=== PATIENT | male | born 1950 | race Two or more races ===

== ENCOUNTER 2024-06-17 08:25 | Outpatient (AMB) | payer MEDICARE, SELFPAY ==
[2024-06-17 08:40] VITALS: BP 188/90; PULSE 53; RESP 18; TEMP 36.6; O2SAT 97; BMI 30.7
--- NOTE | 2024-06-17 08:40 | PD.ORTHCLVIS ---
Vital signs 06/17/24 08:40 Height 1.65 m Height Method Measured Weight 83.915 kg Weight Measurement Method Standing Scale BMI 30.7 BP 188/90 H Blood Pressure Source Automatic Cuff Blood Pressure Location Right Upper Arm Position Sitting Respiration 18 Pulse 53 L Pulse Source Monitor Temp 97.9 F Temp Source Temporal Artery Scan Pulse Oximetry (%) 97 Oxygen Delivery Method Room Air Med/Allergies Allergies & Medications Allergies No Known Drug Allergies Allergy (Verified 06/17/24 08:44) Medication Reconciliation Unobtainable 06/17/24 [History Confirmed 06/17/24] Subjective Visit Visit for: new patient and knee Immunization / Flu Flu Vaccine in the Last 12 Months: No Flu Vaccine Exclusion Criteria: No Exclusion Criteria History of Present Illness Chief complaint: BILATERAL KNEE PAIN Date of injury / onset of symptoms: 5 YEARS & MORE Patient is a pleasant 74-year-old male with bilateral knee pain and bilateral knee arthritis. He has extreme varus deformity and reports that his knees have been Brett. He has tried ibuprofen, Tylenol, and formal physical therapy. He reports the pain is affecting his quality life and happiness. He would like to proceed with surgery if possible. I discussed with him that exactly failed conservative treatment already. Personal History Occupation: RETIRED Pain Pain level (0-10): 10 Pain duration: ALL DAY Pain location: inside (medial), outside (lateral), anterior and posterior Pain quality: sharp, dull and aching Pain timing: night, increases with activity and stairs Associated signs & symptoms: weakness and stiffness Ambulatory data Ambulatory device: cane Treatments Number of previous injections: 3 (IN [place] NO IMPROVEMENT) Improvement with previous injections: No Number of Physical Therapy sessions: 1 (UNABLE TO DO PT SESSION DUE TO PAIN MARCH) Improvement with PT: No Improvement with NSAIDS: n/a Review of Systems Review of Systems: All systems negative unless otherwise noted in HPI. Exam Exam Patient is in no acute distress and is cooperative with the examination today. Breathing is nonlabored. In no respiratory distress. Bilateral extremities were evaluated and demonstrates sensation intact to light touch. Palpable pedal pulses are present. No significant edema is present. Bilateral hips were examined. The patient has no pain with log roll of the hips. Internal rotation to 30 degrees and external rotation to 30 degrees is painless. Negative FADIR. The left knee was examined. The left knee is in [varus] alignment. Range of motion from 10-90 degrees. Knee is stable to varus and valgus as well as AP translation with <5mm. Patient has a [negative] McMurrays. There is [no] pain with patellofemoral compression and [no] crepitus noted. The knee is tender to palpation distally. The right knee was also examined. The right knee is in [varus] alignment. Range of motion from 10-90 degrees. Knee is stable to varus and valgus as well as AP translation with <5mm. Patient has a [negative] McMurrays. There is [no] pain with patellofemoral compression and [no] crepitus noted. The knee is tender to palpation distally. Bilateral knee x-rays demonstrate varus deformity and complete obliteration of the medial joint space. Significant osteophytes are present Assessment and Plan Problem List (1) Degenerative arthritis of knee, bilateral: Status: Acute Plan: Patient is a pleasant 74-year-old male with bilateral knee pain and bilateral knee arthritis. We discussed nonoperative and operative options. He is failed conservative treatment including ibuprofen, Tylenol, and physical therapy. He has extreme varus deformity. I would like to get new x-rays and we can discuss injections versus surgery at the next visit. We actually discussed surgery already in great detail today. He would like to think about it as far as timing. Advanced Care Planning Discussion Advance care planning discussed with:: patient and child Office Procedures GNS Level of Care Nursing/Assessment Patient Status: Established Patient Nursing Assessment/Reassesment: Medication Reconciliation, Update PMH in EMR and Vital Signs Coordination of Care: Complex Care and Chronic Disease 1-5, Education Complex Pt/Fam, Consent,records obtained, informed consent, Results/Orders obtained and Staff clarify orders Special Needs: Language special needs Established Patient Charge Established Patient Point Assignment: 95 Established Patient Point Charge: EP Level 2 (40-75) Past Medical History Past Medical History Have you ever been diagnosed with any of the following: Respiratory Problems Smoking: No Smoking Exposure: No
== END 2024-06-17 09:08 | disposition home or self-care (01) ==
LOC: HODSRG 08:25
PROVIDERS: PCP Family Medicine; Referring Provider Family Medicine; Supervising Provider Orthopaedic Surgery Adult Reconstructive Orthopaedic Surgery; Visit Provider Orthopaedic Surgery Adult Reconstructive Orthopaedic Surgery
DX: M17.0 Bilateral primary osteoarthritis of knee (principal); M25.562 Pain in left knee; M25.561 Pain in right knee
CPT/HCPCS: 99212; G0463

== ENCOUNTER 2024-07-01 08:07 | Outpatient (AMB) | payer MEDICARE, MEDICAID, SELFPAY ==
[2024-07-01 08:18] VITALS: BP 170/99; PULSE 61; RESP 16; TEMP 36.6; O2SAT 96; BMI 30.4
--- NOTE | 2024-07-01 08:18 | PD.ORTHCLVIS ---
Vital signs 07/01/24 08:18 Height 1.65 m Height Method Stated Weight 82.696 kg Weight Measurement Method Standing Scale BMI 30.4 BP 170/99 H Blood Pressure Source Automatic Cuff Blood Pressure Location Right Upper Arm Position Sitting Respiration 16 Pulse 61 Pulse Source Monitor Temp 97.8 F Temp Source Temporal Artery Scan Pulse Oximetry (%) 96 Oxygen Delivery Method Room Air Med/Allergies Allergies & Medications Allergies No Known Drug Allergies Allergy (Verified 07/01/24 08:20) Medication Reconciliation Unobtainable 06/17/24 [History Confirmed 07/01/24] Subjective Visit Visit for: follow up visit and knee Immunization / Flu Flu Vaccine in the Last 12 Months: No Flu Vaccine Exclusion Criteria: No Exclusion Criteria History of Present Illness Chief complaint: FOLLOW UP XRAYS/ KNEE INJECTION Date of injury / onset of symptoms: 5 YEARS & MORE Patient is a pleasant 74-year-old male with bilateral knee pain and bilateral knee arthritis. He has extreme varus deformity and reports that his knees have been curving in quite a bit. He has tried ibuprofen, Tylenol, and formal physical therapy. He reports the pain is affecting his quality life and happiness. He would like to proceed with surgery if possible. I discussed with him that he has failed conservative treatment already. Personal History Occupation: RETIRED Pain Pain level (0-10): 10 Pain duration: ALL DAY Pain location: inside (medial), outside (lateral), anterior and posterior Pain quality: sharp, dull and aching Pain timing: night, increases with activity and stairs Associated signs & symptoms: stiffness Ambulatory data Ambulatory device: cane Treatments Number of previous injections: 3 (IN [place] NO IMPROVEMENT) Improvement with previous injections: No Number of Physical Therapy sessions: 1 (UNABLE TO DO PT SESSION DUE TO PAIN MARCH) Improvement with PT: No Improvement with NSAIDS: n/a Review of Systems Review of Systems: All systems negative unless otherwise noted in HPI. Exam Exam Patient is in no acute distress and is cooperative with the examination today. Breathing is nonlabored. In no respiratory distress. Bilateral extremities were evaluated and demonstrates sensation intact to light touch. Palpable pedal pulses are present. No significant edema is present. Bilateral hips were examined. The patient has no pain with log roll of the hips. Internal rotation to 30 degrees and external rotation to 30 degrees is painless. Negative FADIR. The left knee was examined. The left knee is in [varus] alignment. Range of motion from 10-90 degrees. Knee is stable to varus and valgus as well as AP translation with <5mm. Patient has a [negative] McMurrays. There is [no] pain with patellofemoral compression and [no] crepitus noted. The knee is tender to palpation distally. The right knee was also examined. The right knee is in [varus] alignment. Range of motion from 10-90 degrees. Knee is stable to varus and valgus as well as AP translation with <5mm. Patient has a [negative] McMurrays. There is [no] pain with patellofemoral compression and [no] crepitus noted. The knee is tender to palpation distally. Bilateral knee x-rays demonstrate varus deformity and complete obliteration of the medial joint space. Significant osteophytes are present. There is varus deformity Assessment and Plan Problem List (1) Degenerative arthritis of knee, bilateral: Status: Acute Plan: Patient is a pleasant 74-year-old male with bilateral knee pain and bilateral knee arthritis. We discussed nonoperative and operative options. He is failed conservative treatment including ibuprofen, Tylenol, and physical therapy. He has extreme varus deformity and complete obliteration of the medial joint space. He wants to get a total knee replacement on the left as the pain is affecting his quality of life and happiness. He would also like a right knee injection at this time. Recommend right knee cortisone injection as patient would like to proceed with conservative treatment at this time. The risks and benefits of the procedure were reviewed with the patient and patient gave verbal consent to continue with the procedure. Procedure: performed by Dr. Davis Using sterile technique the Right knee was thoroughly prepped with alcohol, and approximately 1 cc of Kenalog 40 mg/mL and 4 cc of 1% lidocaine was injected without resistance into the medial tibial femoral joint space. The patient tolerated the procedure. The nature and purpose of the left total knee replacement, alternative method(s) of treatment, the material risks involved, and the possibility of complications were fully explained to the patient. The patient does NOT have any of the following contraindications to TKA: - Active infection of the knee joint, OR - Active systemic bacteremia, OR - Active skin infection or open wound at surgical site, OR - Neuropathic arthritis, OR - Severe, rapidly progressive neurological disease, OR - Severe medical condition that makes risks of surgery outweigh the potential benefit The patient was told the most common risks and complications associated with a total knee replacement include, but are not limited to: blood clots in the leg, fatal pulmonary embolism, dislocation of the prosthesis, intraoperative and postoperative fractures of the femur or tibia, infection, failure of the prosthesis or grafting materials, complications from anesthesia, reactions to blood transfusions, postoperative leg length inequality, instability of the knee replacement, nerve damage or injury, vascular injury, delayed wound healing, infection, other injury or even . In addition, there are risks associated with anesthesia given during this operation. Also, the patient was told that after undergoing a total knee replacement there may still be persistent pain or disability. The patient was informed that the success of this operation in part depends upon the mechanical devices which are going to be implanted and that these devices can fail or malfunction, and may need to be repaired or replaced and there are no guarantees as to the longevity of this device or its parts and that it or its parts could fail prematurely. The patient was also notified that during the course of surgery, there may be a need to use bone graft from donors, and that any bone graft used will be carefully screened for communicable diseases, including AIDS, hepatitis, Helio-Creutzfeldt, or other diseases, but despite the screening procedures, there is a small chance that they could contract one of these diseases. Finally, the patient was asked to follow completely and fully with all advice and recommended treatments, and that recovery and ultimate outcome are affected by their compliance with recommended treatment. We discussed the risks, benefits and treatment alternatives, and the patient is interested in proceeding with surgery. We will try to set this up as expeditiously as possible. Advanced Care Planning Discussion Advance care planning discussed with:: patient and child Office Procedures GNS Level of Care Nursing/Assessment Patient Status: Established Patient Nursing Assessment/Reassesment: Medication Reconciliation, Update PMH in EMR and Vital Signs Coordination of Care: Complex Care and Chronic Disease 1-5, Education Complex Pt/Fam, Consent,records obtained, informed consent, Results/Orders obtained and Staff clarify orders Special Needs: Language special needs Established Patient Charge Established Patient Point Assignment: 95 Established Patient Point Charge: EP Level 3 (80-115) Surgical Proc/IM SQ injection Major Surgical Procedure: Yes (KNEE INJECTION) Medication Given Medication Given Medication Given: Yes Documented Dose Given: 4 Route: Infiitration Medication Given Medication Given Medication Given: Yes Documented Dose Given: 1 Route: Infiitration Office Meds Xylocaine 10 mg/mL (1 %) injection solution Performing Provider: Michael Davis MD Performing Location: [facility] Administered by: Michael Davis MD on 07/01/24 08:58 Dose Route Admin Location Dispensed Lot Number Expiration Date [facility] Cash [employer] 20 mL Infiltration 20 mL [id number] 03/11/27 98022-966-04 [facility] triamcinolone acetonide 40 mg/mL suspension for injection Performing Provider: Michael Davis MD Performing Location: [facility] Administered by: Michael Davis MD on 07/01/24 08:58 Dose Route Admin Location Dispensed Lot Number Expiration Date [facility] Cash [employer] 40 mg Infiltration 1 mL [id number] 03/11/26 [address]-7 [employer] Past Medical History Past Medical History Have you ever been diagnosed with any of the following: Respiratory Problems Smoking: No Smoking Exposure: No
== END 2024-07-01 08:42 | disposition home or self-care (01) ==
PROVIDERS: PCP Family Medicine; Referring Provider Family Medicine; Supervising Provider Orthopaedic Surgery Adult Reconstructive Orthopaedic Surgery; Visit Provider Orthopaedic Surgery Adult Reconstructive Orthopaedic Surgery
DX: M17.0 Bilateral primary osteoarthritis of knee (principal); M25.562 Pain in left knee; M25.561 Pain in right knee
CPT/HCPCS: 20610; 99213; J3301; J3490; G0463

== ENCOUNTER → 2024-08-20 | Outpatient (CLI) | payer MEDICARE, MEDICAID, SELFPAY ==
--- NOTE | 2024-08-20 13:00 | XR_ITS ---
Examination: CT left lower extremity, without contrast. 2-D sagittal reconstructions. 2-D coronal reconstructions. 3-D reconstructions. Date and time of exam:August 20, 20242026 hours INDICATIONS: Left knee osteoarthritis pain for years CTDI: vol (mGy):9.84 DLP: (mGycm):774 Technique: Multiple 1.25 mm axial sections of the left lower extremity without intravenous contrast have been obtained. 2-D sagittal and coronal reconstructions have been obtained. 3-D reconstructions have been obtained. Low dose protocols were performed. One or more of the following dose reduction techniques were used; automated exposure control, adjustment of the mA and/or KV according to patient size, use of iterative reconstruction technique. Findings: Significant osteopenia Moderate narrowing left hip joint No left hip fracture or hip dislocation Advanced left knee tricompartment osteoarthritis, prominent narrowing medial joint space with subarticular sclerosis No fracture IMPRESSION: Advanced left knee tricompartment osteoarthritis
== END | disposition home or self-care (01) ==
PROVIDERS: Referring Provider Orthopaedic Surgery Adult Reconstructive Orthopaedic Surgery; Visit Provider Orthopaedic Surgery Adult Reconstructive Orthopaedic Surgery
DX: M17.12 Unilateral primary osteoarthritis, left knee (principal)
CPT/HCPCS: 73700

== ENCOUNTER 2024-11-25 12:52 | Outpatient (AMB) | payer MEDICAID, SELFPAY ==
--- NOTE | 2024-11-25 13:10 | ORTHONT_ITS ---
Vital signs 11/25/24 13:11 Height 1.65 m Height Method Stated Weight 83.943 kg Weight Measurement Method Standing Scale BMI 30.8 BP 133/82 H Blood Pressure Source Automatic Cuff Blood Pressure Location Left Upper Arm Position Sitting Respiration 18 Pulse 75 Pulse Source Monitor Temp 97.1 F Temp Source Temporal Artery Scan Pulse Oximetry (%) 95 Oxygen Delivery Method Room Air Med/Allergies Allergies & Medications Allergies No Known Drug Allergies Allergy (Verified 11/25/24 13:17) Medication Reconciliation Unobtainable 06/17/24 [History Confirmed 11/25/24] Exam Exam Patient is in no acute distress and is cooperative with the examination today. Breathing is nonlabored. In no respiratory distress. Bilateral extremities were evaluated and demonstrates sensation intact to light touch. Palpable pedal pulses are present. No significant edema is present. Bilateral hips were examined. The patient has no pain with log roll of the hips. Internal rotation to 30 degrees and external rotation to 30 degrees is painless. Negative FADIR. The left knee was examined. The left knee is in [varus] alignment. Range of motion from 10-90 degrees. Knee is stable to varus and valgus as well as AP translation with <5mm. Patient has a [negative] McMurrays. There is [no] pain with patellofemoral compression and [no] crepitus noted. The knee is tender to palpation distally. The right knee was also examined. The right knee is in [varus] alignment. Range of motion from 10-90 degrees. Knee is stable to varus and valgus as well as AP translation with <5mm. Patient has a [negative] McMurrays. There is [no] pain with patellofemoral compression and [no] crepitus noted. The knee is tender to palpation distally. Bilateral knee x-rays demonstrate varus deformity and complete obliteration of the medial joint space. Significant osteophytes are present. There is varus deformity Assessment and Plan Problem List (1) Degenerative arthritis of knee, bilateral: Status: Acute Plan: Patient is a pleasant 74-year-old male with bilateral knee pain and bilateral knee arthritis. We discussed nonoperative and operative options. He is failed conservative treatment including ibuprofen, Tylenol, and physical therapy. He has extreme varus deformity and complete obliteration of the medial joint space. He wants to get a total knee replacement on the left as the pain is affecting his quality of life and happiness. He would also like a right knee injection at this time. Recommend right knee cortisone injection as patient would like to proceed with conservative treatment at this time. The risks and benefits of the procedure were reviewed with the patient and patient gave verbal consent to continue with the procedure. Procedure: performed by Dr. Davis Using sterile technique the Right knee was thoroughly prepped with alcohol, and approximately 1 cc of Kenalog 40 mg/mL and 4 cc of 1% lidocaine was injected without resistance into the medial tibial femoral joint space. The patient tolerated the procedure. The nature and purpose of the left total knee replacement, alternative method(s) of treatment, the material risks involved, and the possibility of complications were fully explained to the patient. The patient does NOT have any of the following contraindications to TKA: - Active infection of the knee joint, OR - Active systemic bacteremia, OR - Active skin infection or open wound at surgical site, OR - Neuropathic arthritis, OR - Severe, rapidly progressive neurological disease, OR - Severe medical condition that makes risks of surgery outweigh the potential benefit The patient was told the most common risks and complications associated with a total knee replacement include, but are not limited to: blood clots in the leg, fatal pulmonary embolism, dislocation of the prosthesis, intraoperative and postoperative fractures of the femur or tibia, infection, failure of the prosthesis or grafting materials, complications from anesthesia, reactions to blood transfusions, postoperative leg length inequality, instability of the knee replacement, nerve damage or injury, vascular injury, delayed wound healing, infection, other injury or even . In addition, there are risks associated with anesthesia given during this operation. Also, the patient was told that after undergoing a total knee replacement there may still be persistent pain or disability. The patient was informed that the success of this operation in part depends upon the mechanical devices which are going to be implanted and that these devices can fail or malfunction, and may need to be repaired or replaced and there are no guarantees as to the longevity of this device or its parts and that it or its parts could fail prematurely. The patient was also notified that during the course of surgery, there may be a need to use bone graft from donors, and that any bone graft used will be carefully screened for communicable diseases, including AIDS, hepatitis, Helio-Creutzfeldt, or other diseases, but despite the screening procedures, there is a small chance that they could contract one of these diseases. Finally, the patient was asked to follow completely and fully with all advice and recommended treatments, and that recovery and ultimate outcome are affected by their compliance with recommended treatment. We discussed the risks, benefits and treatment alternatives, and the patient is interested in proceeding with surgery. We will try to set this up as expeditiously as possible. Advanced Care Planning Discussion Advance care planning discussed with:: patient and child Office Procedures GNS Level of Care Nursing/Assessment Patient Status: Established Patient Nursing Assessment/Reassesment: Medication Reconciliation, Update PMH in EMR and Vital Signs Coordination of Care: Complex Care and Chronic Disease 1-5, Education Complex Pt/Fam, Consent,records obtained, informed consent, Results/Orders obtained and Staff clarify orders Special Needs: Language special needs Established Patient Charge Established Patient Point Assignment: 95 Established Patient Point Charge: EP Level 3 (80-115) Surgical Proc/IM SQ injection Major Surgical Procedure: Yes (RIGHT KNEE INJECTION) Medication Given Medication Given Medication Given: Yes Documented Dose Given: 4 Route: Infiitration Medication Given Medication Given Medication Given: Yes Documented Dose Given: 1 Route: Infiitration Office Meds Xylocaine 10 mg/mL (1 %) injection solution Performing Provider: Michael Davis MD Performing Location: [facility] Administered by: Michael Davis MD on 11/25/24 13:19 Dose Route Admin Location Dispensed Lot Number Expiration Date [facility] Candle Pourer 20 mL Infiltration 20 mL [id number] 02/10/28 14387-792-53 [facility] triamcinolone acetonide 40 mg/mL suspension for injection Performing Provider: Michael Davis MD Performing Location: [facility] Administered by: Michael Davis MD on 11/25/24 13:19 Dose Route Admin Location Dispensed Lot Number Expiration Date [facility] Candle Pourer 40 mg intra-articular KNEE 1 mL [id number] 06/11/26 4071-2489-70 [facility] Intake Visit Data Collection New Patient or Established: Established Patient (seen at [facility] within 3 years) Reason for Visit:: PRE OP L TLA/RIGHT KNEE INJECTION Seen by Clinical Staff ONLY (RN/MA): No Labor Delivery Rn Required: Yes PCP or OBGYN visit in last 3 months: Yes Hx Now: No Do You Feel Safe at Home: Yes Authorities Contacted: N/A Questionairres Past Medical History Past Medical History Have you ever been diagnosed with any of the following: Respiratory Problems Smoking: No Smoking Exposure: No Subjective Visit Visit for: follow up visit and knee Immunization / Flu Flu Vaccine in the Last 12 Months: No Flu Vaccine Exclusion Criteria: No Exclusion Criteria History of Present Illness Chief complaint: PRE OP L TKA/RIGHT KNEE INJECTION Patient is a pleasant 74-year-old male with bilateral knee pain and bilateral knee arthritis. He has extreme varus deformity and reports that his knees have been curving in quite a bit. He has tried ibuprofen, Tylenol, and formal physical therapy. He reports the pain is affecting his quality life and happiness. He would like to proceed with surgery if possible. I discussed with him that he has failed conservative treatment already. He would like a knee injection on the right and would like to proceed with a left total knee replacment Pain Pain level (0-10): 8 Pain duration: ALL DAY Pain location: inside (medial) and anterior Pain quality: dull and aching Pain timing: night, increases with activity and stairs Associated signs & symptoms: weakness and stiffness Ambulatory data Ambulatory device: cane Treatments Improvement with previous injections: No Improvement with PT: No Improvement with NSAIDS: no Review of Systems Review of Systems: All systems negative unless otherwise noted in HPI.
[2024-11-25 13:11] VITALS: BP 133/82; PULSE 75; RESP 18; TEMP 36.2; O2SAT 95; BMI 30.8
== END 2024-11-25 13:16 | disposition home or self-care (01) ==
LOC: HODSRG 12:52
PROVIDERS: PCP Physician Assistant; Referring Provider Physician Assistant; Supervising Provider Orthopaedic Surgery Adult Reconstructive Orthopaedic Surgery; Visit Provider Orthopaedic Surgery Adult Reconstructive Orthopaedic Surgery
DX: M17.0 Bilateral primary osteoarthritis of knee (principal); M25.562 Pain in left knee; M25.561 Pain in right knee; M21.162 Varus deformity, not elsewhere classified, left knee; M21.161 Varus deformity, not elsewhere classified, right knee
CPT/HCPCS: 20610; 99213; J3301; J3490; G0463

== ENCOUNTER 2024-12-10 06:40 | Day surgery (SDC) | payer MEDICARE, MEDICAID, SELFPAY ==
[2024-12-09 11:42] VITALS: BMI 32.3
[2024-12-09 12:46] LABS: Basophils % (Auto) 0 % (0-2.5); Eosinophils # (Auto) 0.6 Thou/mm3 (0.0-0.5); Eosinophils % (Auto) 6 % (0-10); Hematocrit 39.7 % (41.0-53.0); Hemoglobin 12.8 g/dL (13.5-16.0); Immature Granulocytes % (Auto) 1 % (0-0); Immature Granulocytes Auto 0.06 Thou/mm3 (0.00-0.00); Lymphocytes % (Auto) 20 % (10-50); Mean Corpuscular HGB Conc 32.2 g/dl (31.0-37.0); Mean Corpuscular Hemoglobin 29.5 pg (25.0-35.0); Mean Corpuscular Volume 92 fL (80-100); Monocytes # (Auto) 0.8 Thou/mm3 (0.0-0.8); Monocytes % (Auto) 9 % (0-12); Neutrophils # (Auto) 6.2 Thou/mm3 (1.8-7.7); Neutrophils % (Auto) 64 % (37-80); Nucleated Red Blood Cell % 0 /100 WBC (0); Platelet Count 286 Thou/mm3 (140-440); RDW Standard Deviation 46.1 fL (35.1-43.9); Red Blood Count 4.34 Miln/mm3 (4.50-5.90); White Blood Count 9.7 Thou/mm3 (3.8-10.6)
[2024-12-09 12:51] LABS: Partial Thromboplastin Time 24.8 Seconds (22.0-36.0); Prothrombin Time 11.4 Seconds (9.0-12.2)
[2024-12-09 12:54] LABS: Alanine Aminotransferase 32 U/L (10-49); Albumin, Serum 4.5 gm/dL (3.4-4.8); Albumin/Globulin Ratio 1.7 (1.2-2.2); Alkaline Phosphatase 115 U/L (46-116); Anion Gap 9 (7-16); Aspartate Amino Transferase 24 U/L (0-34); BUN/Creatinine Ratio 15 Ratio (12-20); Bilirubin,Total 0.7 mg/dL (0.3-1.2); Blood Urea Nitrogen 21 mg/dL (9-23); Calcium 9.3 mg/dL (8.3-10.6); Calcium (Corrected) 9.3 mg/dL (8.5-10.1); Chloride 107 mMol/L (98-107); Creatinine (Component) 1.4 mg/dL (0.6-1.3); Estimated Creatinine Clearance 43.8 mL/min (>60); Globulin 2.6 gm/dL (2.3-3.5); Glucose 131 mg/dL (74-106); Osmolality,Calculated 291 (275-295); Potassium 4.1 mMol/L (3.4-5.1); Sodium 144 mMol/L (136-145); Total Protein 7.1 gm/dL (5.7-8.2); eGFR 53 See Note
--- NOTE | 2024-12-09 13:43 | SUR.PREOP ---
Cardiac records and history reviewed with Dr Pantoja.
[2024-12-10] VITALS (19 sets, daily range): BP systolic 93–129; BP diastolic 62–91; PULSE 77–115; RESP 12–20; TEMP 36.1–36.4; O2SAT 87–99; BMI 31.2; BMI 14.0
[2024-12-10] MEDS: ACETAMINOPHEN 325 MG TABLET 650 MG PO (07:11)
[2024-12-10] MEDS: PREGABALIN 75 MG CAPSULE PO (07:12)
[2024-12-10] MEDS: MELOXICAM 7.5 MG TABLET PO (07:12)
--- NOTE | 2024-12-10 11:18 | XR_ITS ---
Examination: Left knee 2 views Technique one AP lateral left knee 2 views Exam date and time: December 10, 2024 1215 hours INDICATIONS: Postop knee replacement FINDINGS: Total left knee arthroplasty. Satisfactory alignment No fracture Prominent osteopenia IMPRESSION: Total left knee arthroplasty with satisfactory alignment
--- NOTE | 2024-12-10 11:22 | ESOP_ITS ---
Date of Procedure 12/10/24 Pre Op Diagnosis left knee osteoarthritis Post Op Diagnosis left knee osteoarthritis Procedure left total knee replacement trev Findings full thickness cartilage loss and osteophytes Procedure Description Indication: The patient is a 74 year old who has a long history of left knee pain. X-rays show degenerative arthritis involving the knee. Over the past several years the patient has had increasing pain, progressive limitation in function. He has failed conservative measures including activity modification, physical therapy, injections, anti-inflammatories, and assistive devices. After a lengthy discussion of the risks and benefits, the patient presents now for total knee replacement. The nature and purpose of the total knee replacement, alternative method(s) of treatment, the material risks involved, and the possibility of complications were fully explained to the patient. The patient was told the most common risks and complications associated with a total knee replacement include, but are not limited to blood clots in the leg, fatal pulmonary embolism, dislocation of the prosthesis, intraoperative and postoperative fractures of the femur or tibia, infection, failure of the prosthesis or grafting materials, complications from anesthesia, reactions to blood transfusions, postoperative leg length inequality, instability of the knee replacement, nerve damage or injury, vascular injury, delayed wound healing, infections, other injury or even . In addition, there are risks associated with anesthesia given during this operation, temporary or permanent numbness on the skin lateral to the incision can be a complication unique to total knee surgery, and kneeling can be painful after knee replacement surgery. Also, the patient was told that after undergoing a total knee replacement there may still be pain or disability. We discussed with the patient that we will be using a robot-assisted technology. We discussed that there is a possibility of converting to manual instrumentation. The patient was informed that the success of this operation in part depends upon the mechanical devices which are going to be implanted and that these devices can fail or malfunction, and may need to be repaired or replaced and there are no guarantees as to the longevity of this device or its part and that it or its parts could fail prematurely. Finally, the patient was asked to follow completely and fully with all advice and recommended treatments, and that recovery and ultimate outcome are affected by their compliance with recommended treatment. Surgical technique: Patient was marked and consented in the pre-operative area. The patient was brought to the operating room and placed on the operating table in a supine position. Prior to positioning, a timeout procedure was performed between the surgeon, the anesthesiologist, and the nursing staff where the patient and the operative side were identified and confirmed. After adequate general anesthetic was obtained, the left lower extremity was prepped and draped in the usual sterile fashion. A weight based dose of Cefazolin were administered within 1 hour prior to incision. The robot was preregistered and calirated before the incision. The extremity was exsanguinated with an esmarch badge and tourniquet inflated to 250mmHg. A midline incision was made. A median parapatellar arthrotomy was made. The patella was subluxed laterally. A medial release was performed to expose the medial tibia. His femoral and tibial pins were placed through an intra incisional manner for both cases. Every effort was made to ensure that the distalmost aspect of the pin was hung in the second cortex. The arrays were then tightened several times to ensure that it was fixed for the remainder of the case. Both femoral and tibial checkpoints were then placed. We then went through the registration process of the bone. We then assessed the knee deformity and attempted to correct it. We also used the robot to aid in judging laxity in both extension and flexion. Final based on laxity and alignment we changed the preoperative assessment to obtain proper proper implant positioning and to correct deformity. Attention was then placed to the tibia. We made a tibial cut using the robot ensuring that both the MCL and the patella tendon were protected with retractors. We then went to the femur and made the posterior cut followed by the anterior cut and the anterior chamfer. The bone was then removed and we made a distal femur cut and a posterior chamfer cut. We verified all cuts. A trial reduction was performed with a size 6 femoral component and a size 5 keeled tibial component. The patella tracked centrally, and no lateral retinacular release was necessary. The trial implants were removed. The arrays, pins, and checkpoints were all removed. We performed a verification that all pins were removed. The cut bone surfaces were lavaged. A size 6 left femoral component, a size 5 keeled tibial component were impacted into position. The knee was felt to be well balanced in the sagittal and coronal plane. The final 5x10 mm cruciate- substituting articular insert was impacted into the tibial tray. The knee was brought out to full extension, flexed up to 120 degrees. It was stable to varus and valgus stress and appropriately balanced in flexion and extension. The wounds were copiously irrigated following deflation of tourniquet. The medial retinaculum was reapproximated with #1 vicryl and quill. The subcutaneous tissues were closed with 0 and 2-0 interrupted Vicryl. The skin was closed with 3-0 Monofilament V loc suture. A sterile dressing was applied. The patient was transferred to a bed and brought to recovery in stable condition. The patient tolerated the procedure well. There were no intraoperative complications. Sponge and needle counts were correct times 2. As the attending surgeon, I ariel I was present and performed the entire operation. Grafts/Implants Size 6 CR Femur Size 5 Tibia 10mm poly CS Anesthesia spinal Implants radha Pathology / specimen None Pathology comment: none Estimated Blood Loss 150 Condition Stable Disposition same day Surgeon Michael Davis MD Surgical Staff Operation Date: 12/10/24 10:00 Case Staff Anesthesiologist: Rodney Bridges RN First Assistant: Imelda Vu
--- NOTE | 2024-12-10 11:44 | SUR.PHASEI ---
pt received from OR in recovery bay 2. pt obtunded, breathing labored on 15l oxymask, oral airway in place. v/s stable. pt dressing to left lower extremity cdi. report received from Macario Frost and Dr. Bridges.
--- NOTE | 2024-12-10 11:49 | SUR.PHASEI ---
suction performed on pt.
--- NOTE | 2024-12-10 14:11 | SUR.PHASEII ---
pt able to tolerate oral fluids without difficulty swallowing or nausea/vomiting.
[2024-12-10] MEDS: ALBUTEROL RT 2.5 MG/3 ML NEBU INH (15:57)
--- NOTE | 2024-12-10 16:10 | SUR.PHASEII ---
pt oxygen saturation better after breathing treatment, spoke with Dr. Bridges about pts oxygen saturation, ok with d/c.
--- NOTE | 2024-12-10 16:24 | SUR.PHASEII ---
pt awake and alert, breathing unlabored on room air. v/s stable. pt dressing to left lower extremity cdi. pt cleared by physical therapist Jeannie. pt able to ambulate to with walker. d/c instructions given with daughter Shayla in room using information technology architect Leola falk, all questions answered. pt d/c via wheelchair with all belongings.
== END 2024-12-10 16:24 | disposition home or self-care (01) ==
PROVIDERS: Anesthesiology; PCP Physician Assistant; Referring Provider Orthopaedic Surgery Adult Reconstructive Orthopaedic Surgery; Visit Provider Orthopaedic Surgery Adult Reconstructive Orthopaedic Surgery
PROC: (CPT 27447; principal; 2024-12-10 09:45)
DX: M17.12 Unilateral primary osteoarthritis, left knee (principal); M25.762 Osteophyte, left knee
CPT/HCPCS: 27447; 20985; 36415; 73560; 80053; 85025; 85610; 85730; 97162; A4217; C1713; C1776; J2250; J2704; J2795; J3010; J3490; J7030; J7120; J7999; A4648; A4649; A9270

== ENCOUNTER 2024-12-11 12:46 | Inpatient (IN) | payer MEDICARE, MEDICAID, SELFPAY ==
[2024-12-11] VITALS (7 sets, daily range): BP systolic 114–148; BP diastolic 71–92; PULSE 68–79; RESP 13–96; TEMP 36.3–37.3; O2SAT 93–96; BMI 31.2
--- NOTE | 2024-12-11 12:54 | XR_ITS ---
Examination: CT brain head without contrast. 2-D sagittal coronal reconstructions Date and time of exam:December 11, 2024 1257 hours INDICATIONS: Stroke alert, onset left-sided body weakness today CTDI: vol (mGy):48.2 DLP: (mGycm):963 Technique: Multiple CT axial sections of the brain have been obtained, 5 mm slice thickness. Contrast has not been administered. 2-D sagittal, coronal reconstructions have been obtained Low dose protocols were performed. One or more of the following dose reduction techniques were used; automated exposure control, adjustment of the mA and/or KV according to patient size, use of iterative reconstruction technique. Findings: No significant ventricular enlargement. Intra-axial or extra-axial hemorrhage density is not seen. No mass effect or midline shift Basal cisterns are not remarkable. Fourth ventricle is midline. Cranial vault intact. Impression: Negative for acute hemorrhage, mass effect or midline shift
--- NOTE | 2024-12-11 12:54 | EKG_ITS ---
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
--- NOTE | 2024-12-11 12:55 | PD.EDADULT ---
ED General RME/HPI General Chief complaint: General Adult/Misc Complain Stated complaint: LEFT ARM WEAKNESS X1DAY Time Seen by Provider: 12/11/24 12:53 Arrival date/time: 12/11/24 12:46 RME / HPI RME / HPI narrative: 74-year-old male patient with significant history of hypertension diabetes mellitus, came in for evaluation regarding strokelike symptoms. Last well-known time 4:30 PM yesterday after patient was helped by physical therapy to get up. Patient had a knee replacement to the left lower extremity yesterday by Dr. Davis. Patient is complaining of left arm weakness, headache, dizziness, severity moderate. Denies any slurring of speech denies any vomiting denies any other complaints no medication was taken prior to arrival. Patient is taking 81 mg of aspirin. Related Data Home Medications ?Medication ?Instructions ?Recorded ?Confirmed amlodipine 10 mg tablet 10 mg PO QDAY 12/09/24 12/10/24 aspirin 81 mg tablet,delayed 81 mg PO QDAY 12/09/24 12/10/24 release (Adult Low Dose Aspirin) atorvastatin 40 mg tablet 40 mg PO QPM 12/09/24 12/10/24 lisinopril 20 mg tablet 20 mg PO QDAY 12/09/24 12/10/24 metformin 500 mg tablet 500 mg PO BID 12/09/24 12/10/24 Previous Rx's ?Medication ?Instructions ?Recorded acetaminophen 500 mg tablet 1,000 mg (2 x 500 mg) PO Q6H PRN 12/10/24 (Acetaminophen Extra Strength) pain #90 tabs aspirin 81 mg tablet,delayed 81 mg PO BID #60 tabs 12/10/24 release doxycycline hyclate 100 mg tablet 100 mg PO BID #14 tabs 12/10/24 gabapentin 300 mg capsule 300 mg PO .qhs #30 caps 12/10/24 oxycodone 5 mg tablet 5 mg PO Q6H PRN pain #28 tabs 12/10/24 sennosides 8.6 mg-docusate sodium 1 tab-cap PO QDAY #30 tabs 12/10/24 50 mg tablet (Senna-S) Allergies Allergy/AdvReac Type Severity Reaction Status Date / Time No Known Drug Allergies Allergy Verified 12/10/24 07:01 Review of Systems Review of Systems Narrative Review of Systems: Review of system reviewed and within normal limits except mentioned in HPI ED Exam Narrative Physical exam: VITAL SIGNS: Reviewed. GENERAL APPEARANCE: Alert and interactive, follows commands, no acute distress, HEAD AND FACE: Non-traumatic. ENT: PERRL, pink conjunctivitis, eyelid no trauma, Mucous membrane moist. NECK: Supple, nontender, no nuchal rigidity. CHEST: No tenderness, no crepitus, no paradoxical movement, no retractions. LUNGS: Clear, well ventilated, symmetric, no rales, no wheezing, no ronchi, no stridor, good breath sounds bilaterally. HEART: Regular rate, regular rhythm, no murmur, no gallops. ABDOMEN: Soft, positive bowel sounds, nondistended, no guarding, nontender, no rebound, no masses, RECTAL: Deferred. GENITAL: Deferred. NEUROLOGICAL: Gross motor function intact sensory function intact, weakness noted on handgrip, slight left arm drifting, mild facial asymmetry noted, tongue is deviated to the left mildly. On protrusion MUSCULOSKELETAL: low back nontender, full range of motion. EXTREMITIES: Nontender, full range of motion. SKIN: Color pink, dry, no rash, no lacerations, no abrasions, no contusions. LYMPHATICS: Deferred. Course Quality Measures none Orders Category Date Time Status Bedside Blood Glucose NOW Care 12/11/24 12:54 Active COVID-19 Screening Questionnaire NOW Care 12/11/24 14:54 Active Glost Kiln Operator NOW Care 12/11/24 12:54 Active Continuous Pulse Oximetry NOW Care 12/11/24 12:54 Completed Decision to Admit X1 Care 12/11/24 14:54 Active EKG (ED ONLY) *Do not use* NOW Care 12/11/24 12:54 Completed In and Out Catheter NEEDED Care 12/11/24 12:54 Active Insert IV NOW Care 12/11/24 12:54 Active NIH Stroke Scale now Care 12/11/24 12:54 Active NPO NOW Care 12/11/24 12:54 Active Nurse Swallow Screen x1 Care 12/11/24 12:54 Active Consult to Neurology / Tele-Neurology Routine Cons 12/11/24 12:[address] stroke protocol Stat Exams 12/11/24 12:54 Completed EKG (ED Only) Stat Exams 12/11/24 12:54 Draft CBC Stat Lab 12/11/24 13:11 Completed Comprehensive Metabolic Panel Stat Lab 12/11/24 13:11 Completed Drug Screen,Urine Stat Lab 12/11/24 12:54 Ordered Magnesium Stat Lab 12/11/24 13:11 Completed Partial Thromboplastin Time Stat Lab 12/11/24 13:11 Completed Prothrombin Time with INR Stat Lab 12/11/24 13:11 Completed Troponin I Stat Lab 12/11/24 13:11 Completed Urinalysis Stat Lab 12/11/24 12:54 Ordered Urine Culture Stat Lab 12/11/24 12:54 Ordered Aspirin [Ecotrin] Med 12/11/24 13:23 Discontinued 81 mg PO X1 ONE Ondansetron Inj [Zofran Inj] Med 12/11/24 12:54 Active 4 mg IV Q4HR PRN Oxygen Delivery NOW RT 12/11/24 12:54 Active Vital Signs Vital signs: Vital Signs Temperature 99.1 F 12/11/24 12:58 Pulse Rate 77 12/11/24 12:58 Respiratory Rate 19 12/11/24 12:58 Blood Pressure 114/71 12/11/24 12:58 Pulse Oximetry (%) 95 12/11/24 12:58 Oxygen Delivery Method Room Air 12/11/24 12:58 Discharge Plan Plan Patient Disposition: Admit Acute Care w/in Hospital Discharge Disposition comment: Stable Prescriptions/Referrals Prescriptions/Med Rec: No Action metformin 500 mg tablet 500 mg PO BID atorvastatin 40 mg tablet 40 mg PO QPM lisinopril 20 mg tablet 20 mg PO QDAY amlodipine 10 mg tablet 10 mg PO QDAY aspirin [Adult Low Dose Aspirin] 81 mg tablet,delayed release (DR/EC) 81 mg PO QDAY sennosides-docusate sodium [Senna-S] 8.6-50 mg tablet 1 tab-cap PO QDAY Qty: 30 0RF aspirin 81 mg tablet,delayed release (DR/EC) 81 mg PO BID Qty: 60 0RF acetaminophen [Acetaminophen Extra Strength] 500 mg tablet 1,000 mg PO Q6H MDD 1000mg PRN (Reason: pain) Qty: 90 0RF gabapentin 300 mg capsule 300 mg PO .qhs Qty: 30 0RF doxycycline hyclate 100 mg tablet 100 mg PO BID Qty: 14 0RF oxycodone 5 mg tablet 5 mg PO Q6H MDD 20 PRN (Reason: pain) Qty: 28 0RF Rx Instructions: z96.65 Referrals: Seb Ogden PA-C [Primary Care Provider] - In 1 week Problem List Clinical Impression: Stroke-like symptom Patient/Caregiver Discharge Instructions Print Language: Turkmen Stand Alone Forms: [employer] Award Info., Patient Portal Info Letter MDM Narrative MDM hospital course (for use when minimal MDM required): 74-year-old male patient with significant history of hypertension diabetes mellitus, came in for evaluation regarding strokelike symptoms. Last well-known time 4:30 PM yesterday after patient was helped by physical therapy to get up. Patient had a knee replacement to the left lower extremity yesterday by Dr. Davis. Patient is complaining of left arm weakness, headache, dizziness, severity moderate. Denies any slurring of speech denies any vomiting denies any other complaints no medication was taken prior to arrival. Patient is taking 81 mg of aspirin. Stroke alert was initiated right away at the time of my initial evaluation CT scan of the head came back unremarkable. Laboratory workup also came back with WBC count of 14.4, hemoglobin 10.8 hematocrit 32.6 creatinine 1.4 BUN of 25 the rest of the labs unremarkable. Except for magnesium 1.5 Patient was given aspirin 81 mg p.o. x 1 Spoke with teleneurologist, who told me to cancel the CT angiogram of the head and neck and just go ahead and do MRI. Spoke with hospitalist who admitted the patient. Clinical Information Other: Family Medical Records reviewed [facility] Meds/Rx considered, not ordered describe: None Labs/Rad/Tests considered, not ordered Describe: None Chronic Illness/Social Conditions Explain: Hypertension diabetes mellitus, status post knee replacement yesterday Labs Lab(s) Interpretation(s): None Imaging Imaging Interpretation(s): EKG as interpreted by me showed paced rhythm, ventricular rate of 76 bpm, [place] interval 366 MS, no ST segment elevation depression noted. Medication Administration(s) Medication Administration History Ondansetron HCl (Ondansetron Inj 2 Mg/Ml Inj 2 Ml) 4 mg IV Q4HR PRN PRN Reason: NAUSEA OR VOMITING Stop: 01/10/25 12:53 Discontinued Medications Aspirin (Aspirin Ec 81 Mg Tabec) 81 mg PO X1 ONE Stop: 12/11/24 13:24 Last Admin: 12/11/24 15:00 Dose: 81 mg Documented By: ER Diagnosis Differential Diagnosis ED Complaint MDM: Strokelike symptoms, left upper extremity weakness, status post knee replac Diagnoses ruled out and/or further discussions: Strokelike symptoms
[2024-12-11 13:21] LABS: Basophils % (Auto) 0 % (0-2.5); Eosinophils % (Auto) 0 % (0-10); Hematocrit 32.6 % (41.0-53.0); Hemoglobin 10.8 g/dL (13.5-16.0); Immature Granulocytes % (Auto) 0 % (0-0); Immature Granulocytes Auto 0.04 Thou/mm3 (0.00-0.00); Lymphocytes # (Auto) 1.1 Thou/mm3 (1.0-4.8); Lymphocytes % (Auto) 8 % (10-50); Mean Corpuscular HGB Conc 33.1 g/dl (31.0-37.0); Mean Corpuscular Hemoglobin 29.3 pg (25.0-35.0); Mean Corpuscular Volume 88 fL (80-100); Monocytes % (Auto) 7 % (0-12); Neutrophils # (Auto) 12.3 Thou/mm3 (1.8-7.7); Neutrophils % (Auto) 85 % (37-80); Nucleated Red Blood Cell % 0 /100 WBC (0); Platelet Count 232 Thou/mm3 (140-440); RDW Standard Deviation 44.2 fL (35.1-43.9); Red Blood Count 3.69 Miln/mm3 (4.50-5.90); White Blood Count 14.4 Thou/mm3 (3.8-10.6)
--- NOTE | 2024-12-11 13:27 | PC.NURSE ---
pt came in due to left arm numbness and weakness that started after physical therapy yesterday. pt also had knee surgery yesterday. stroke alert called. pt has no other symptoms. but slight headache.
[2024-12-11 13:36] LABS: INR 1.1 (0.9-1.3); Partial Thromboplastin Time 26.5 Seconds (22.0-36.0); Prothrombin Time 11.9 Seconds (9.0-12.2)
[2024-12-11 13:38] LABS: Alanine Aminotransferase 19 U/L (10-49); Albumin/Globulin Ratio 1.7 (1.2-2.2); Alkaline Phosphatase 75 U/L (46-116); Anion Gap 12 (7-16); Aspartate Amino Transferase 21 U/L (0-34); BUN/Creatinine Ratio 18 Ratio (12-20); Bilirubin,Total 0.8 mg/dL (0.3-1.2); Blood Urea Nitrogen 25 mg/dL (9-23); Calcium 8.8 mg/dL (8.3-10.6); Calcium (Corrected) 8.8 mg/dL (8.5-10.1); Carbon Dioxide 23.9 mMol/L (20.0-31.0); Chloride 105 mMol/L (98-107); Creatinine (Component) 1.4 mg/dL (0.6-1.3); Globulin 2.4 gm/dL (2.3-3.5); Glucose 124 mg/dL (74-106); Magnesium 1.5 mg/dL (1.6-2.6); Osmolality,Calculated 286 (275-295); Potassium 4.4 mMol/L (3.4-5.1); Sodium 141 mMol/L (136-145); Total Protein 6.4 gm/dL (5.7-8.2); Troponin I < 0.002 ng/mL (0.0-0.045); eGFR 53 See Note
--- NOTE | 2024-12-11 14:08 | ESCONSULT_ITS ---
Tele Neuro Consultation Consultation Date 12/11/24 Most Recent Vital Signs Last Vital Signs Temp 98.6 F 12/11/24 13:27 Pulse 77 12/11/24 13:40 Resp 15 12/11/24 13:40 BP 130/74 12/11/24 13:27 Pulse Ox 96 12/11/24 13:27 O2 Del Method Room Air 12/11/24 13:27 Laboratory-Coagulation Panel PT 11.9 Seconds (9.0-12.2) 12/11/24 13:11 INR 1.1 (0.9-1.3) 12/11/24 13:11 APTT 26.5 Seconds (22.0-36.0) 12/11/24 13:11 Consultation Narrative [facility] Tele[facility]urology Consult Services Patient Name:???Keenan Heredia Date of :???1950 Identification Number:??? Date of Service:???12/11/2024 12:57:01 Diagnosis:?I63.89 - Cerebrovascular accident (CVA) due to other mechanism ([facility]) Impression: ?74 year old male who presents with left arm weakness. presentation concerning for acute small vessel stroke vs recrudescence of prior stroke. Our recommendations are outlined below. Recommendations: ? Stroke/Telemetry Floor ? Neuro Checks ? Bedside Swallow Eval ? DVT Prophylaxis ? IV Fluids, Normal Saline ? Head of Bed 30 Degrees ? Euglycemia and Avoid Hyperthermia (PRN Acetaminophen) ? Initiate or continue Aspirin 81 MG daily Sign Out: ? Discussed with Emergency Department Provider Advanced Imaging: Advanced Imaging Deferred because: Non-disabling symptoms as verified by the patient; no cortical signs so not consistent with LVO Metrics: Last Known Well: 12/10/2024 16:30:00 Dispatch Time: 12/11/2024 12:57:01 Arrival Time: 12/11/2024 12:46:00 Initial Response Time: 12/11/2024 13:00:00Symptoms: Left arm weakness. Initial patient interaction: 12/11/2024 13:09:16 NIHSS Assessment Completed: 12/11/2024 13:15:00Patient is not a candidate for Thrombolytic. Thrombolytic Medical Decision: 12/11/2024 13:15:00Patient was not deemed candidate for Thrombolytic because of following reasons: LKW outside 4.[address] head showed no acute hemorrhage or acute core infarct. Primary Provider Notified of Diagnostic Impression and Management Plan on: 12/11/2024 13:21:00 History of Present Illness:Patient is a 74 year old Male. Patient was brought by private transportation with symptoms of Left arm weakness. 74 year old male who presents to the hospital because of headache and left arm weakness. He had left knee replacement recently and yesterday while at physical therapy he had trouble holding onto an object with his left hand and had trouble making a fist. Past Medical History: ?Hypertension Medications: No Anticoagulant use? No Antiplatelet use Reviewed EMR for current medications Allergies:? Reviewed Social History: Drug Use: No Family History: There is no family history of premature cerebrovascular disease pertinent to this consultation ROS : 14 Points Review of Systems was performed and was negative except mentioned in HPI. Past Surgical History: There Is No Surgical History Contributory To Today?s Visit Examination: BP(130/74),?Pulse(77), 1A: Level of Consciousness - Alert; keenly responsive?+ 0 1B: Ask Month and Age - 1 Question Right?+ 1 1C: Blink Eyes & Squeeze Hands - Performs Both Tasks?+ 0 2: Test Horizontal Extraocular Movements - Normal?+ 0 3: Test Visual Lucero - No Visual Loss?+ 0 4: Test Facial Palsy (Use Grimace if Obtunded) - Normal symmetry?+ 0 5A: Test Left Arm Motor Drift - Drift, but doesn't hit bed?+ 1 5B: Test Right Arm Motor Drift - No Drift for 10 Seconds?+ 0 6A: Test Left Leg Motor Drift - No Drift for 5 Seconds?+ 0 6B: Test Right Leg Motor Drift - No Drift for 5 Seconds?+ 0 7: Test Limb Ataxia (FNF/Heel-Adair) - No Ataxia?+ 0 8: Test Sensation - Mild-Moderate Loss: Less Sharp/More Dull?+ 1 9: Test Language/Aphasia - Normal; No aphasia?+ 0 10: Test Dysarthria - Normal?+ 0 11: Test Extinction/Inattention - No abnormality?+ 0 NIHSS Score:?3 Pre-Morbid Modified Toombs Scale:2 Points = Slight disability; unable to carry out all previous activities, but able to look after own affairs without assistance Spoke with :?Michelle WOODY This consult was conducted in real time using interactive audio and video technology. Patient was informed of the technology being used for this visit and agreed to proceed. Patient located in hospital and provider located at home/office setting. Patient is being evaluated for possible acute neurologic impairment and high probability of imminent or life-threatening deterioration. I spent total of 30 minutes providing care to this patient, including time for face to face visit via telemedicine, review of medical records, imaging studies and discussion of findings with providers, the patient and/or family. Dr Chary Fitch [facility] For Inpatient follow-up with [facility] physician please call [facility] at . As we are not an outpatient service for any post hospital discharge needs please contact the hospital for assistance. If you have any questions for the [facility] physicians or need to reconsult for clinical or diagnostic changes please contact us via [facility] at .
[2024-12-11] MEDS: ASPIRIN EC 81 MG TABEC PO (15:00)
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
[2024-12-11 16:04] LABS: Collection Type, Urine Clean Catch; Squamous Epithelial Cell,Urine 0 /hpf (0-5)
[2024-12-11 16:16] LABS: Bilirubin,Urine Negative (Negative); Blood,Urine Negative (Negative); Clarity,Urine Clear (Clear/Hazy); Color,Urine Colorless (Lt Yel-Yel); Glucose, Urine Negative (Negative); Ketones,Urine Negative (Negative); Leukocyte Esterase,Urine Negative (Negative); Nitrite,Urine Negative (Negative); Protein,Urine Negative (Neg - Trace); RBC,Urine 1 /hpf (0-3); Specific Gravity,Urine 1.011 (1.001-1.035); Urobilinogen,Urine Negative mg/dL (0.0-1.0); WBC,Urine 1 /hpf (0-5)
[2024-12-11 16:40] LABS: Amphetamine/Methamp Scrn,U Negative (Negative); Barbiturate Screen,Urine Negative (Negative); Benzodiazepines Screen,Urine Positive (Negative); Benzoylecgonine Screen, Ur Negative (Negative); Fentanyl Screen,Urine Negative (Negative); Opiate Screen,Urine Negative (Negative); THC Screen,Urine Negative (Negative)
[2024-12-11] MEDS: LACTULOSE SYRUP 20 GM/30 ML UDC PO (17:09)
[2024-12-11] MEDS: HYDROcodone/APAP 5/325 TABLET 1 TAB PO (17:09)
[2024-12-11] MEDS: Magnesium Sulfate 4 GM Ivpb 4 GM/50 ML BAG IV (17:09)
[2024-12-11] MEDS: SODIUM CHLORIDE 0.9% 1000 ML 1,000 ML 75 ML IV (17:10)
[2024-12-11] MEDS: MORPHINE SULF INJ 10 MG/ML VIAL IVP (22:02)
[2024-12-11] MEDS: HEPARIN SOD INJ 5000 UNIT/ML VIAL SC (22:02)
[2024-12-11] MEDS: ATORVASTATIN CALCIUM 20 MG TABLET 80 MG PO (22:02)
[2024-12-12] VITALS (9 sets, daily range): BP systolic 137–149; BP diastolic 80–100; PULSE 64–92; RESP 13–95; TEMP 36.2–36.9; O2SAT 93–95; BMI 31.0
[2024-12-12] MEDS: HYDROcodone/APAP 5/325 TABLET 1 TAB PO ×2 (02:39→17:30)
[2024-12-12] MEDS: HEPARIN SOD INJ 5000 UNIT/ML VIAL SC ×2 (05:16→14:03)
[2024-12-12 05:54] LABS: Basophils % (Auto) 0 % (0-2.5); Eosinophils # (Auto) 0.1 Thou/mm3 (0.0-0.5); Eosinophils % (Auto) 1 % (0-10); Hematocrit 31.7 % (41.0-53.0); Hemoglobin 10.3 g/dL (13.5-16.0); Immature Granulocytes % (Auto) 0 % (0-0); Immature Granulocytes Auto 0.05 Thou/mm3 (0.00-0.00); Lymphocytes # (Auto) 1.4 Thou/mm3 (1.0-4.8); Lymphocytes % (Auto) 12 % (10-50); Mean Corpuscular HGB Conc 32.5 g/dl (31.0-37.0); Mean Corpuscular Hemoglobin 29.4 pg (25.0-35.0); Mean Corpuscular Volume 91 fL (80-100); Monocytes # (Auto) 0.8 Thou/mm3 (0.0-0.8); Monocytes % (Auto) 7 % (0-12); Neutrophils # (Auto) 9.8 Thou/mm3 (1.8-7.7); Neutrophils % (Auto) 81 % (37-80); Nucleated Red Blood Cell % 0 /100 WBC (0); Platelet Count 195 Thou/mm3 (140-440); RDW Standard Deviation 46.2 fL (35.1-43.9); White Blood Count 12.1 Thou/mm3 (3.8-10.6)
[2024-12-12 06:06] LABS: Glucose Estimated Average 126 mg/dL (80-131)
[2024-12-12 06:31] LABS: Alanine Aminotransferase 15 U/L (10-49); Albumin, Serum 3.9 gm/dL (3.4-4.8); Albumin/Globulin Ratio 1.7 (1.2-2.2); Alkaline Phosphatase 78 U/L (46-116); Anion Gap 10 (7-16); Aspartate Amino Transferase 15 U/L (0-34); BUN/Creatinine Ratio 18 Ratio (12-20); Bilirubin,Total 0.9 mg/dL (0.3-1.2); Blood Urea Nitrogen 20 mg/dL (9-23); Calcium 8.6 mg/dL (8.3-10.6); Calcium (Corrected) 8.7 mg/dL (8.5-10.1); Carbon Dioxide 26.8 mMol/L (20.0-31.0); Cardiac Risk Estimate 2.7 RATIO (4.0-6.7); Chloride 106 mMol/L (98-107); Cholesterol 80 mg/dL (132-200); Creatinine (Component) 1.1 mg/dL (0.6-1.3); Estimated Creatinine Clearance 58.7 mL/min (>60); Globulin 2.3 gm/dL (2.3-3.5); Glucose 112 mg/dL (74-106); HDL Cholesterol 30 mg/dL (40-60); LDL Cholesterol,Calculated 27 mg/dL (0-130); Osmolality,Calculated 288 (275-295); Potassium 4.4 mMol/L (3.4-5.1); Sodium 143 mMol/L (136-145); Thyroid Stimulating Hormone 0.61 uIU/mL (0.55-4.78); Total Protein 6.2 gm/dL (5.7-8.2); Triglycerides 116 mg/dL (30-150); eGFR > 60 See Note
--- NOTE | 2024-12-12 08:39 | PC.NURSE ---
dispute coordinator: Assisted with Tele-Speech: Speech Therapy swallow evaluation.
--- NOTE | 2024-12-12 09:24 | PC.SS ---
SUPERVISOR PATCHING conducted bedside contact with the patient conduct initial assessment and to discuss discharge planning.? SUPERVISOR PATCHING utilized interpretation services to assist with discussion.? Patient confirmed demographic information.? Patient resides at home with daughter, Shayla Coronado .? Patient recently received surgery on right knee.? Procedure conducted by Dr. Jarrell. Patient possesses a walker to assist with ambulation.? Patient does not utilize home oxygen.? Patient describes the ability to complete ADL?s independently.? Patient identified daughter, Alecia Coronado; as medical surrogate decision maker.? Patient?s PCP is [facility].? Patient does not participate with dialysis.? Patient does not possess any specialty providers.? Patient possesses history of diabetes, non-insulin dependent.? Patient utilizes [facility] for medication services.? Patietn is aligned with home health services.? Patient plans on resuming home health upon discharge.? Plan is for the patient to return home at the time of discharge.? Family will provide transportation on behalf of the patient. ?No further discharge needs identified by the patient.? No further intervention required at this time, social work msw will be available to address any further concerns.? Next of Kin: Shayla Coronado D/C Plan: Home
[2024-12-12] MEDS: ASPIRIN EC 81 MG TABEC PO ×2 (09:38→21:55)
[2024-12-12] MEDS: DOXYCYCLINE 100 MG TABLET PO ×2 (09:38→21:55)
--- NOTE | 2024-12-12 09:55 | PC.SS ---
Update: Echo is pending. Neurology recommendations pending.
--- NOTE | 2024-12-12 10:11 | XR_ITS ---
Examination: Carotid arterial duplex scan, ultrasound. Date and time of exam: December 12, 2024 1039 hours INDICATIONS: CT stroke alert yesterday, onset left-sided body weakness focal neurologic deficit Technique: Multiple sonographic images have been obtained of the carotid arteries and vertebral arteries, B-mode/grayscale imaging and Doppler spectral analysis and color flow Peak systolic and diastolic velocities have been recorded. Systolic diastolic ratios have been calculated. Findings: Right peak systolic velocities: Distal internal carotid artery peak systolic velocity is 0.8 M/sec Proximal internal carotid artery peak systolic velocity is 0.7 M/sec Carotid bifurcation peak systolic velocity is 0.7 M/sec External carotid artery peak systolic velocity is 1.1 M/sec Vertebral artery flow is antegrade. Left peak systolic velocities: Distal internal carotid artery peak systolic velocity is 0.8 M/sec Proximal internal carotid artery peak systolic velocity is 0.4 M/sec Carotid bifurcation peak systolic velocity is 1.0 M/sec External carotid artery peak systolic velocity is 1.0 M/sec Vertebral artery flow is antegrade Doppler waveform analysis demonstrates no spectral broadening Impression: Right internal carotid artery demonstrates 0-10% stenosis. Left internal carotid artery demonstrates 0-10% stenosis.
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
--- NOTE | 2024-12-12 10:43 | PC.SS ---
ANIMAL SHELTER SUPERVISOR attemtped phone contact with the patient's daughter, Shayla Coronado ; to confirm patient's alignment with home health. No response, unable to leave voicemail.
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
[2024-12-12] MEDS: MORPHINE SULF INJ 10 MG/ML VIAL IVP (12:56)
--- NOTE | 2024-12-12 13:00 | XR_ITS ---
Examination: CT brain head without contrast. 2-D sagittal coronal reconstructions Date and time of exam:December 12, 2024 1352 hours Comparison December 11, 2024 INDICATIONS: Stroke alert, onset left-sided body weakness December 11, 2024 CTDI: vol (mGy):51 DLP: (mGycm):1027 Technique: Multiple CT axial sections of the brain have been obtained, 5 mm slice thickness. Contrast has not been administered. 2-D sagittal, coronal reconstructions have been obtained Low dose protocols were performed. One or more of the following dose reduction techniques were used; automated exposure control, adjustment of the mA and/or KV according to patient size, use of iterative reconstruction technique. Findings: No significant ventricular enlargement. Intra-axial or extra-axial hemorrhage density is not seen. No mass effect or midline shift Basal cisterns are not remarkable. Fourth ventricle is midline. Cranial vault intact. Impression: No interval acute hemorrhage mass effect or midline shift
--- NOTE | 2024-12-12 13:34 | PC.PT ---
Patient is safe to ambulate to the bathroom and in the halls with a FWW and 1 staff assist. RN made aware.
--- NOTE | 2024-12-12 15:25 | ECHO_ITS ---
Transthoracic Echo Report Ht (in): 64 Wt (lb): 181 Exam Location: Portable Status: Inpatient Sql Developer Dba: LUDY Rich^^^^ Indications: Procedure Performed: BP: / HR: 74 Technical Quality: Fair MEASUREMENTS (Male / Female) Normal Values 2D ECHO LV Diastolic Diameter PLAX 3.5 cm 4.2 - 5.9 / 3.9 - 5.3 cm LV Systolic Diameter PLAX 2.4 cm IVS Diastolic Thickness 1.3 cm 0.6 - 1.0 / 0.6 - 0.9 cm LVPW Diastolic Thickness 1.7 cm 0.6 - 1.0 / 0.6 - 0.9 cm LV Relative Wall Thickness 0.8 LVOT Diameter 1.8 cm Aortic Root Diameter 3.7 cm LA Systolic Diameter LX 2.9 cm 3.0 - 4.0 / 2.7 - 3.8 cm LA Volume Index 28.3 cm?/m? 16 - 28 cm?/m? Ascending Aorta Diameter 3.8 cm DOPPLER AV Peak Velocity 242.2 cm/s AV Peak Gradient 23.5 mmHg AV Mean Gradient 18.0 mmHg AV Velocity Time Integral 56.0 cm LVOT Peak Velocity 103.7 cm/s LVOT Peak Gradient 4.3 mmHg LVOT Velocity Time Integral 57.9 cm LVOT Cardiac Index 5579.5 cm?/min?m? AV Area Cont Eq vti 2.6 cm? AV Area Cont Eq pk 1.1 cm? MV Area PHT 3.0 cm? Mitral E Point Velocity 90.8 cm/s Mitral A Point Velocity 105.0 cm/s Mitral E to A Ratio 0.9 LV E' Lateral Velocity 10.1 cm/s Mitral E to LV E' Lateral Ratio 9.0 LV E' Septal Velocity 8.6 cm/s Mitral E to LV E' Septal Ratio 10.6 TR Peak Velocity 299.8 cm/s TR Peak Gradient 35.9 mmHg PV Peak Velocity 135.0 cm/s PV Peak Gradient 7.3 mmHg RVOT Peak Velocity 74.6 cm/s FINDINGS Left Ventricle Normal left ventricular size with evidence of left ventricle hypertrophy and asymmetric septal hypertrophy basal septum is hypertrophied with wall thickness of 18 mm. Left ventricle wall motion normal ejection fraction 70%. Hyperdynamic left ventricle contractility. Right Ventricle The right ventricle is normal in size and systolic function. The estimated right ventricular systolic pressure, 40 mmHg. Left Atrium The left atrium is normal by two-dimensional, color flow and Doppler imaging with no structural abnormalities, no thrombus formation present. Right Atrium The right atrium is normal by two-dimensional imaging, color flow and Doppler imaging with no structural abnormalities, no thrombus formation present. Atrial Septum The interatrial septum is normal to color flow Doppler and agitated saline imaging. Aorta The aorta is normal by two-dimensional, color flow and Doppler interrogation. Mitral Valve Mild mitral regurgitation. Mild mitral annular calcification. Aortic Valve Mild aortic valve stenosis, mean gradient 18 mmHg, ANDREW 2.6 cm?. Tricuspid Valve There is mild tricuspid valve regurgitation. Pulmonic Valve Trivial pulmonic valve regurgitation. Vessels The pulmonary artery appears normal. The inferior vena cava pulmonary and hepatic veins appear normal. Pericardium The pericardium is normal by two-dimensional imaging. There is no significant pericardial effusion. CONCLUSIONS indication: stroke w/ Bubble Aortic root is normal in size. Aortic valve leaflets are thin and show no evidence of stenosis. Aortic cusp separation is normal. 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 Left ventricle function normal ejection fraction 70%. Aortic velocity left ventricle outflow tract velocity is 2.7 m/s with left ventricular outflow tract peak gradient is 30 mmHg. Findings are suggestive of mild left ventricular outflow tract obstruction at rest. Valsalva maneuver not performed. Bubble study is negative for intracardiac shunt. No evidence of PFO IAS is normal to color flow Doppler and agitated saline imaging. Mitral valve thickening mild mitral regurgitation no evidence of systolic anterior motion. Mild tricuspid regurgitation. Antoinette Hernandez (Electronically Signed) Final Date: 16 Dec 2024 12:28
--- NOTE | 2024-12-12 16:06 | PC.SS ---
CHIP[employer] FEEDER confirmed with patient's daughter, Shayla; that the patient is aligned with [facility].
[2024-12-12] MEDS: INSULIN LISPRO (AdmeLOG) 1 UNIT/0.01 ML UNIT SC (17:23)
[2024-12-12] MEDS: PANTOPRAZOLE INJ 40 MG VIAL IV (21:55)
[2024-12-12] MEDS: ATORVASTATIN CALCIUM 20 MG TABLET 80 MG PO (21:55)
[2024-12-13] VITALS (9 sets, daily range): BP systolic 128–162; BP diastolic 85–115; PULSE 56–97; RESP 14–97; TEMP 36.3–37.1; O2SAT 93–98; BMI 31.5
[2024-12-13] MEDS: HYDROcodone/APAP 5/325 TABLET 1 TAB PO ×2 (04:04→11:04)
[2024-12-13 06:06] LABS: Basophils # (Auto) 0.1 Thou/mm3 (0.0-0.2); Basophils % (Auto) 1 % (0-2.5); Eosinophils # (Auto) 0.4 Thou/mm3 (0.0-0.5); Eosinophils % (Auto) 4 % (0-10); Hematocrit 33.2 % (41.0-53.0); Hemoglobin 10.9 g/dL (13.5-16.0); Immature Granulocytes % (Auto) 1 % (0-0); Immature Granulocytes Auto 0.08 Thou/mm3 (0.00-0.00); Lymphocytes # (Auto) 1.3 Thou/mm3 (1.0-4.8); Lymphocytes % (Auto) 14 % (10-50); Mean Corpuscular HGB Conc 32.8 g/dl (31.0-37.0); Mean Corpuscular Hemoglobin 29.5 pg (25.0-35.0); Mean Corpuscular Volume 90 fL (80-100); Monocytes # (Auto) 0.6 Thou/mm3 (0.0-0.8); Monocytes % (Auto) 7 % (0-12); Neutrophils # (Auto) 6.9 Thou/mm3 (1.8-7.7); Neutrophils % (Auto) 74 % (37-80); Nucleated Red Blood Cell # 0.03 Thou/mm3 (0.00-0.00); Nucleated Red Blood Cell % 0 /100 WBC (0); Platelet Count 220 Thou/mm3 (140-440); RDW Standard Deviation 45.7 fL (35.1-43.9); Red Blood Count 3.69 Miln/mm3 (4.50-5.90); White Blood Count 9.3 Thou/mm3 (3.8-10.6)
[2024-12-13 06:37] LABS: Alanine Aminotransferase 13 U/L (10-49); Albumin/Globulin Ratio 1.7 (1.2-2.2); Alkaline Phosphatase 88 U/L (46-116); Anion Gap 11 (7-16); Aspartate Amino Transferase 16 U/L (0-34); BUN/Creatinine Ratio 15 Ratio (12-20); Bilirubin,Total 1.2 mg/dL (0.3-1.2); Blood Urea Nitrogen 17 mg/dL (9-23); Calcium 8.6 mg/dL (8.3-10.6); Calcium (Corrected) 8.6 mg/dL (8.5-10.1); Carbon Dioxide 25.6 mMol/L (20.0-31.0); Chloride 106 mMol/L (98-107); Creatinine (Component) 1.1 mg/dL (0.6-1.3); Estimated Creatinine Clearance 59.1 mL/min (>60); Globulin 2.4 gm/dL (2.3-3.5); Glucose 125 mg/dL (74-106); Magnesium 1.7 mg/dL (1.6-2.6); Osmolality,Calculated 287 (275-295); Potassium 4.1 mMol/L (3.4-5.1); Sodium 143 mMol/L (136-145); Total Protein 6.4 gm/dL (5.7-8.2); eGFR > 60 See Note
--- NOTE | 2024-12-13 07:33 | PC.NURSE ---
Addendum entered by Shereen Pope RN 12/13/24 07:40: Correction hold movantik until abdominal xray is complete. Original Note: Dr. Zhou aware pt. has not had BM since 12/10 per daughter at bedside[address] Dr. Zhou agrees to order laxative but states hold lactulose until abdominal xray is done.
[2024-12-13] MEDS: DOXYCYCLINE 100 MG TABLET PO (08:29)
[2024-12-13] MEDS: ASPIRIN EC 81 MG TABEC PO (08:29)
--- NOTE | 2024-12-13 09:15 | PC.NURSE ---
Dr. Zhou aware of current BP reading, no new orders provided.
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
--- NOTE | 2024-12-13 11:22 | PC.NURSE ---
Dr. Juarez at bedside and aware of BP. orders continue with DC, no further orders at this time.
--- NOTE | 2024-12-13 11:22 | PC.NURSE ---
Went over education with pt. and daughter at bedside and allquestions and concerns addressed for DC. Pt. requesting commode for home, so SS Jeannie seema be coming to bedside to assess for this DME for home, then DC will lhappen. Dr. cervantes orders for pt.to continue blood pressure meds at home, but does not order any blood pressure meds at this time.
--- NOTE | 2024-12-13 12:16 | PC.SS ---
Patient is physically incapable of utilizing regular toilet facilities because his or her diagnosis confines the patient to a single room. Patient is confined to a single level, and there is no toilet on that level; patient cannot access the toilet facilities in a timely manner due to lack of ambulation.
--- NOTE | 2024-12-13 15:01 | PC.SS ---
BSC ordered via [employer] company contact information provided at bedside. FABIENNE Regan informed.
--- NOTE | 2024-12-13 15:53 | PC.CC ---
Addendum entered by Lizzy Mccurdy RN 12/13/24 16:00: [facility] accepted the pt and I booked it. Resume of care date is 12/15/2024. Original Note: Patient is aligned with [facility]. HH referral sent on [employer]. Awaiting responses. Pending start of care date.
== END 2024-12-13 13:17 | disposition home health service (06) | DRG 948 ==
LOC: SERX 15:08 → SERHOLD 15:51 → S2NX 20:28
PROVIDERS: Nurse Practitioner Family; Admitting Provider Student in an Organized Health Care Education/Training Program; Emergency Provider Emergency Medicine; PCP Physician Assistant; Visit Provider Student in an Organized Health Care Education/Training Program
DX: R53.1 Weakness (principal); N17.9 Acute kidney failure, unspecified; N18.31 Chronic kidney disease, stage 3a; E11.22 Type 2 diabetes mellitus with diabetic chronic kidney disease; I12.9 Hypertensive chronic kidney disease with stage 1 through stage 4 chronic kidney disease, or unspecified chronic kidney disease; E78.5 Hyperlipidemia, unspecified; E83.42 Hypomagnesemia; D63.1 Anemia in chronic kidney disease; Z96.652 Presence of left artificial knee joint; D72.829 Elevated white blood cell count, unspecified; Z79.82 Long term (current) use of aspirin; Z79.899 Other long term (current) drug therapy; Z87.891 Personal history of nicotine dependence
CPT/HCPCS: 36415; 70450; 80053; 80061; 80307; 81001; 83036; 83735; 84443; 84484; 85025; 85610; 85730; 87081; 87086; 92610; 93005; 93306; 93880; 97162; 99285; J1644; J1815; J2270; J2470; J3475; J7030; A9270

== ENCOUNTER 2024-12-25 10:34 | Outpatient (AMB) | payer MEDICARE, MEDICAID, SELFPAY ==
[2024-12-25 10:47] VITALS: BP 110/76; PULSE 97; RESP 18; TEMP 36.9; O2SAT 98
--- NOTE | 2024-12-25 10:47 | ORTHONT_ITS ---
Vital signs 12/25/24 10:47 Weight 78.557 kg Weight Measurement Method Standing Scale BP 110/76 Blood Pressure Source Automatic Cuff Blood Pressure Location Right Upper Arm Position Sitting Respiration 18 Pulse 97 Pulse Source Monitor Temp 98.4 F Temp Source Temporal Artery Scan Pulse Oximetry (%) 98 Oxygen Delivery Method Room Air Med/Allergies Allergies & Medications Allergies No Known Drug Allergies Allergy (Verified 12/25/24 10:48) Medication Reconciliation amlodipine 10 mg tablet 10 mg PO QDAY 12/09/24 [History Confirmed 12/25/24] lisinopril 20 mg tablet 20 mg PO QDAY 12/09/24 [History Confirmed 12/25/24] metformin 500 mg tablet 500 mg PO BID 12/09/24 [History Confirmed 12/25/24] acetaminophen 500 mg tablet (Acetaminophen Extra Strength) 1,000 mg (2 x 500 mg) PO Q6H PRN pain #90 tabs 12/10/24 [Rx Confirmed 12/25/24] doxycycline hyclate 100 mg tablet 100 mg PO BID #14 tabs 12/10/24 [Rx Confirmed 12/25/24] gabapentin 300 mg capsule 300 mg PO .qhs #30 caps 12/10/24 [Rx Confirmed 12/25/24] oxycodone 5 mg tablet 5 mg PO Q6H PRN pain #28 tabs 12/10/24 [Rx Confirmed 12/25/24] sennosides 8.6 mg-docusate sodium 50 mg tablet (Senna-S) 1 tab-cap PO QDAY #30 tabs 12/10/24 [Rx Confirmed 12/25/24] aspirin 81 mg tablet,delayed release 81 mg PO BID 27 days #54 tabs 12/13/24 [Rx Confirmed 12/25/24] atorvastatin 80 mg tablet 80 mg PO QPM 1 month #30 tabs 12/13/24 [Rx Confirmed 12/25/24] clopidogrel 75 mg tablet 75 mg PO QDAY 1 month #30 tabs 12/13/24 [Rx Confirmed 12/25/24] Exam Exam Patient is in no acute distress and is cooperative with the examination today. Breathing is nonlabored. In no respiratory distress. Bilateral extremities were evaluated and demonstrates sensation intact to light touch. Palpable pedal pulses are present. No significant edema is present. Bilateral hips were examined. The patient has no pain with log roll of the hips. Internal rotation to 30 degrees and external rotation to 30 degrees is painless. Negative FADIR. Left knee incision is c/d/i. ROM is 0-95 Assessment and Plan Problem List (1) Degenerative arthritis of knee, bilateral: Status: Acute Plan: Patient is a pleasant 74-year-old male with bilateral knee pain and bilateral knee arthritis. He is doing well s/p L TKA. We will see him in 4 weeks. He should continue to work with outpatient therapy. Advanced Care Planning Discussion Advance care planning discussed with:: patient Office Procedures GNS Level of Care Nursing/Assessment Patient Status: Established Patient Nursing Assessment/Reassesment: Medication Reconciliation, Update PMH in EMR and Vital Signs Coordination of Care: Complex Care and Chronic Disease 1-5, Consent,records obtained, informed consent, Education Simp Pt/Fam, Results/Orders obtained and Staff clarify orders Special Needs: Language special needs (GRENADIAN ) Established Patient Charge Established Patient Point Assignment: 90 Established Patient Point Charge: EP Level 3 (80-115) MA Intake Visit Data Collection New Patient or Established: Established Patient (seen at [facility] within 3 years) Reason for Visit:: 2 WK POST OP RT KNEE Seen by Clinical Staff ONLY (RN/MA): No 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 Required: Yes PCP or OBGYN visit in last 3 months: Yes Hx Now: No Do You Feel Safe at Home: Yes Authorities Contacted: N/A Questionairres Past Medical History Past Medical History Have you ever been diagnosed with any of the following: Neurological Problems Cerebrovascular Accident (CVA): No Seizures: No Cardiology Problems Hypercholesterolemia: Yes Congestive Heart Failure: No Hypertension: Yes Respiratory Problems Chronic Obstructive Pulmonary Disease (COPD): No Smoking: No Smoking Exposure: No Stomache/Intestinal Problems Hepatitis: No Obesity: Yes Genital/Urinary Problems Renal Disease: No Musculoskeletal Problems Arthritis: Yes Endocrine Problems Diabetes Mellitus Type 1: No Diabetes Mellitus Type 2: Yes Blood Problems Anemia: Yes Other Problems Hospitalization: Yes (DM) Shingles: No Blood Transfusions: No Blood Transfusion Reaction: No Anesthesia Reactions: No Cancer: No Subjective Visit Visit for: follow up visit and post op #1 (2 WK POST OP ) Immunization / Flu Flu Vaccine in the Last 12 Months: Yes Flu Vaccine Exclusion Criteria: Already Received History of Present Illness Chief complaint: left knee replacement Patient is 2 weeks postop status post left total knee replacement. He is doing well. He is using a walker and is doing well. Personal History Red flag PMH: none Pain Pain level (0-10): 6 Pain duration: 12/10/24 Pain location: anterior Pain quality: sharp Pain timing: night Associated signs & symptoms: none Ambulatory data Ambulatory device: walker Walking distance (minutes): 1 Treatments Number of previous injections: 0 Number of Physical Therapy sessions: 0 Improvement with NSAIDS: n/a Review of Systems Review of Systems: All systems negative unless otherwise noted in HPI.
== END 2024-12-25 11:04 | disposition home or self-care (01) ==
PROVIDERS: PCP Physician Assistant; Referring Provider Physician Assistant; Supervising Provider Orthopaedic Surgery Adult Reconstructive Orthopaedic Surgery; Visit Provider Orthopaedic Surgery Adult Reconstructive Orthopaedic Surgery
DX: M17.0 Bilateral primary osteoarthritis of knee (principal); M25.562 Pain in left knee; M25.561 Pain in right knee; Z96.652 Presence of left artificial knee joint; I10 Essential (primary) hypertension; E78.00 Pure hypercholesterolemia, unspecified; E11.9 Type 2 diabetes mellitus without complications
CPT/HCPCS: 99213; G0463

== ENCOUNTER 2025-01-08 15:00 | Outpatient (RCR) | payer MEDICARE, MEDICAID, SELFPAY ==
--- NOTE | 2025-01-07 11:00 | PTNOTE_ITS ---
PT OP Initial Eval Patient Information Outpatient Physical Therapy Treatment Date: 01/07/25 Visit Reasons: s/p left TKA Medical Diagnosis: s/p L TKA M17.0 Treatment Dx #1: L knee pain Treatment Dx #2: Decreased ROM L knee Start of Care: 01/07/25 Date of Onset: 12/10/24 Smoking Status Smoking Status: Never smoker Initial Assessment Subjective: Pt is 74 yr old turkmen speaking male with dtr presents ambulating with 4WW s/p L TKA. Pt reports variable pain level, today it's higher. He is ambulating HH distances and outside the house for 20-30 minutes. PMH: DM, HTN, high cholesterol Pt goal: no pain with walking Objective: L knee ArOM: Extension: -16 deg Flexion: 80 deg SLR: 65 deg with extensor lag Strength: Quads: 3+/5 HS: 4-/5 Gait: ambulates with flexed knee step through gait with 4WW Assessment: Pt presentation consistent with post op L TKA with decreased ROM, strength ? and WB tolerance. Pt lacks knee extension and flexion is limited by ? myofascial limitations and pain.? Pt requires skilled therapy to improve ROM ? and strength and has good rehab potential.? Eval followed by HEP with printout. Short Term and Shelter Goals 1. Independent with HEP 2. Improved knee ROM to full extension to 115 deg flexion 3. Improved quad and hamstring strength to 4+/5 4. Improved ambulatory tolerance to community distances with symmetrical ?? gait pattern.??? Treatment Plan ?1. Manual therapy ? 2. Therex ? 3. Modalities as indicated, moist heat, ice, estim Frequency and Duration: 2-3x a week for 18 visits Certification Dates: 01/07/25 to 04/09/25 Procedure Charges OP PT Eval Mod Complex 30 minutes: Yes
--- NOTE | 2025-01-08 16:04 | PT.ODAYNRPT ---
PT Outpatient Daily Note OP Daily Note Outpatient Physical Therapy Treatment Date: 01/08/25 Visit Reasons: s/p left TKA Subjective: Pt c/o knee stiffness and pain. As per pt he has been performing HEP and applying cold pack at home. Objective: Please see flow sheet for ther ex list. Assessment: Perfromed PROM to L knee to ~90 deg of flexion, minimal guarded noted. Plan: Continue with poC. Length of Time (minutes) of Treatment: 30 Minutes Procedure Charges Therapeutic Exercise 30 minutes: Yes
== END 2025-01-10 23:59 | disposition home or self-care (01) ==
LOC: CPTX 15:00
PROVIDERS: PCP Orthopaedic Surgery Adult Reconstructive Orthopaedic Surgery; Referring Provider Orthopaedic Surgery Adult Reconstructive Orthopaedic Surgery; Visit Provider Orthopaedic Surgery Adult Reconstructive Orthopaedic Surgery
DX: M25.562 Pain in left knee (principal); Z96.652 Presence of left artificial knee joint; I10 Essential (primary) hypertension; E11.9 Type 2 diabetes mellitus without complications
CPT/HCPCS: 97110; 97162

== ENCOUNTER → 2025-01-15 | Outpatient (CLI) | payer MEDICARE, MEDICAID, SELFPAY ==
--- NOTE | 2025-01-15 | XR_ITS ---
Examination: Bilateral AP knees single view Left knee PA lateral axial views 3 views TECHNIQUE: Bilateral upright AP knees single view PA upright left knee flexion, upright lateral left knee, axial left knee 3 views total 4 views Date and time: January 15, 2025 1159 hours INDICATIONS: Left knee replacement December 10, 2024 FINDINGS: Moderate osteopenia Severe narrowing medial joint space right knee Moderate osteoarthritis lateral joint space right knee Total left knee arthroplasty. Satisfactory alignment No loosening of the prosthetic components IMPRESSION: Severe narrowing medial joint space right knee Total left knee arthroplasty with satisfactory alignment
== END | disposition home or self-care (01) ==
PROVIDERS: PCP Physician Assistant; Referring Provider Orthopaedic Surgery Adult Reconstructive Orthopaedic Surgery; Visit Provider Orthopaedic Surgery Adult Reconstructive Orthopaedic Surgery
DX: M25.861 Other specified joint disorders, right knee (principal); Z96.652 Presence of left artificial knee joint
CPT/HCPCS: 73564

== ENCOUNTER 2025-01-22 09:00 | Outpatient (AMB) | payer MEDICARE, MEDICAID, SELFPAY ==
[2025-01-22 09:20] VITALS: BP 120/79; PULSE 81; RESP 19; TEMP 36.9; O2SAT 98; BMI 28.7
--- NOTE | 2025-01-22 09:20 | ORTHONT_ITS ---
Vital signs 01/22/25 09:20 Height 1.63 m Height Method Stated Weight 76.317 kg Weight Measurement Method Standing Scale BMI 28.7 BP 120/79 Blood Pressure Source Automatic Cuff Blood Pressure Location Left Upper Arm Position Sitting Respiration 19 Pulse 81 Pulse Source Monitor Temp 98.4 F Temp Source Temporal Artery Scan Pulse Oximetry (%) 98 Oxygen Delivery Method Room Air Med/Allergies Allergies & Medications Allergies No Known Drug Allergies Allergy (Verified 01/22/25 09:21) Medication Reconciliation amlodipine 10 mg tablet 10 mg PO QDAY 12/09/24 [History Confirmed 01/22/25] lisinopril 20 mg tablet 20 mg PO QDAY 12/09/24 [History Confirmed 01/22/25] metformin 500 mg tablet 500 mg PO BID 12/09/24 [History Confirmed 01/22/25] doxycycline hyclate 100 mg tablet 100 mg PO BID #14 tabs 12/10/24 [Rx Confirmed 01/22/25] gabapentin 300 mg capsule 300 mg PO .qhs #30 caps 12/10/24 [Rx Confirmed 01/22/25] sennosides 8.6 mg-docusate sodium 50 mg tablet (Senna-S) 1 tab-cap PO QDAY #30 tabs 12/10/24 [Rx Confirmed 01/22/25] acetaminophen 500 mg tablet (Acetaminophen Extra Strength) 1,000 mg (2 x 500 mg) PO Q6H PRN pain #90 tabs 12/25/24 [Rx Confirmed 01/22/25] oxycodone 5 mg tablet 5 mg PO Q6H PRN pain #28 tabs 01/22/25 [Rx] Exam Exam Patient is in no acute distress and is cooperative with the examination today. Breathing is nonlabored. In no respiratory distress. Bilateral extremities were evaluated and demonstrates sensation intact to light touch. Palpable pedal pulses are present. No significant edema is present. Bilateral hips were examined. The patient has no pain with log roll of the hips. Internal rotation to 30 degrees and external rotation to 30 degrees is painless. Negative FADIR. Left knee incision is c/d/i. ROM is 0-100 Assessment and Plan Problem List (1) Degenerative arthritis of knee, bilateral: Status: Acute Plan: Patient is a pleasant 74-year-old male with bilateral knee pain and bilateral knee arthritis. He is doing well s/p L TKA. We will see him in 6-8 weeks. He should continue to work with outpatient therapy. Advanced Care Planning Discussion Advance care planning discussed with:: patient and child Office Procedures GNS Level of Care Nursing/Assessment Patient Status: Established Patient Nursing Assessment/Reassesment: Medication Reconciliation, Update PMH in EMR and Vital Signs Coordination of Care: Complex Care and Chronic Disease 1-5, Education Complex Pt/Fam, Consent,records obtained, informed consent, Results/Orders obtained and Staff clarify orders Special Needs: Language special needs Established Patient Charge Established Patient Point Assignment: 95 Established Patient Point Charge: EP Level 3 (80-115) MA Intake Visit Data Collection New Patient or Established: Established Patient (seen at [facility] within 3 years) Reason for Visit:: 4 WEEK FOLLOW UP L TKA Seen by Clinical Staff ONLY (RN/MA): No Machine Attendant Required: Yes PCP or OBGYN visit in last 3 months: Yes Hx Now: No Do You Feel Safe at Home: Yes Authorities Contacted: N/A Questionairres Past Medical History Past Medical History Have you ever been diagnosed with any of the following: Neurological Problems Cerebrovascular Accident (CVA): No Seizures: No Cardiology Problems Hypercholesterolemia: Yes Congestive Heart Failure: No Hypertension: Yes Respiratory Problems Chronic Obstructive Pulmonary Disease (COPD): No Smoking: No Smoking Exposure: No Stomache/Intestinal Problems Hepatitis: No Obesity: Yes Genital/Urinary Problems Renal Disease: No Musculoskeletal Problems Arthritis: Yes Endocrine Problems Diabetes Mellitus Type 1: No Diabetes Mellitus Type 2: Yes Blood Problems Anemia: Yes Other Problems Hospitalization: Yes (DM) Shingles: No Blood Transfusions: No Blood Transfusion Reaction: No Anesthesia Reactions: No Cancer: No Subjective Visit Visit for: follow up visit, post op #2 and knee Immunization / Flu Flu Vaccine in the Last 12 Months: No Flu Vaccine Exclusion Criteria: No Exclusion Criteria History of Present Illness Chief complaint: left knee replacement Patient is 6 weeks postop status post left total knee replacement. He is doing well. He is using a cane and is doing well. Personal History Red flag PMH: none Pain Pain level (0-10): 3 Pain duration: COMES AND GOES Pain location: anterior Pain quality: aching Pain timing: increases with activity Associated signs & symptoms: none Ambulatory data Ambulatory device: cane Walking distance (minutes): 1 Treatments Number of previous injections: 0 Improvement with previous injections: No Number of Physical Therapy sessions: 0 Improvement with PT: Yes Improvement with NSAIDS: no Review of Systems Review of Systems: All systems negative unless otherwise noted in HPI.
== END 2025-01-22 09:27 | disposition home or self-care (01) ==
LOC: HODSRG 09:00
PROVIDERS: PCP Physician Assistant; Referring Provider Physician Assistant; Supervising Provider Orthopaedic Surgery Adult Reconstructive Orthopaedic Surgery; Visit Provider Orthopaedic Surgery Adult Reconstructive Orthopaedic Surgery
DX: M17.0 Bilateral primary osteoarthritis of knee (principal); M25.562 Pain in left knee; M25.561 Pain in right knee; Z96.652 Presence of left artificial knee joint; I10 Essential (primary) hypertension; E78.00 Pure hypercholesterolemia, unspecified; E11.9 Type 2 diabetes mellitus without complications
CPT/HCPCS: 99213; G0463

== ENCOUNTER 2025-01-26 09:30 | Outpatient (RCR) | payer MEDICARE, MEDICAID, SELFPAY ==
--- NOTE | 2025-01-12 14:37 | PT.ODAYNRPT ---
PT Outpatient Daily Note OP Daily Note Outpatient Physical Therapy Treatment Date: 01/12/25 Visit Reasons: S/P left TKA Subjective: Doing HEP with better knee extension Objective: See F/S for therex MHP L knee with LLPS Assessment: Good improvement with knee extension ROM with low load prolonged stretching to about -5 deg. He is ambulating with better knee extension with cues. Plan: Continue per POC Length of Time (minutes) of Treatment: 30 Minutes Procedure Charges Therapeutic Exercise 30 minutes: Yes
--- NOTE | 2025-01-14 12:06 | PT.ODAYNRPT ---
PT Outpatient Daily Note OP Daily Note Outpatient Physical Therapy Treatment Date: 01/14/25 Visit Reasons: S/P left TKA Subjective: High L knee pain after therapy visits Objective: See F/S for therex MHP L knee with LLPS x7' Assessment: Good improvement with knee extension ROM with low load prolonged stretching to about -5 deg. He is ambulating with better knee extension with cues. Plan: Continue per POC Length of Time (minutes) of Treatment: 30 Minutes Procedure Charges Therapeutic Exercise 30 minutes: Yes
--- NOTE | 2025-01-16 14:58 | PT.ODAYNRPT ---
PT Outpatient Daily Note OP Daily Note Outpatient Physical Therapy Treatment Date: 01/16/25 Visit Reasons: S/P left TKA Subjective: Pt reports he has been compliant with HEP, has been performing HEP twice a day. Objective: Please see flow sheet for ther ex list,.. Assessment: Pt instructed on mini squats, pt favors R side verbal cues for correction. Plan: Continue with pOC. Length of Time (minutes) of Treatment: 30 Minutes Procedure Charges Therapeutic Exercise 30 minutes: Yes
--- NOTE | 2025-01-19 17:36 | PT.ODAYNRPT ---
PT Outpatient Daily Note OP Daily Note Outpatient Physical Therapy Treatment Date: 01/19/25 Visit Reasons: S/P left TKA Subjective: High L knee pain after therapy visits Objective: See F/S for therex MT: PROM into flexion x7' Assessment: L knee flexion ROM is limited by myofascial limitations at about 90-95 deg Plan: Continue per POC Length of Time (minutes) of Treatment: 30 Minutes Procedure Charges Therapeutic Exercise 30 minutes: Yes
--- NOTE | 2025-01-21 11:04 | PTNOTE_ITS ---
PT OP Progress/Discharge Note Date of Service: 01/21/25 Progress Note/DC Note Progress Note/Discharge Note: Progress Note Patient Information Visit Reasons: S/P left TKA Service Continue Service or Discharge: Continue Service Status Subjective: High L knee pain after therapy visits, doing HEP, ambulating with cane. Objective: See F/S for therex MT: PROM into flexion x10' with overpressure to end-range L knee AROM: PROM: Flexion: 88 deg 100 deg Extension: -10 deg -5 deg Assessment: Pt has attended the eval and 6 Rx sessions with good progress with therapy goals. He is ambulating with a cane with improved knee extension. L knee flexion ROM is limited by myofascial limitations at about 100 deg which is shy of 115 deg goal. Pt would benefit from continued therapy to meet goals. Plan: Continue per POC up to 18 visits. 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
--- NOTE | 2025-01-23 13:22 | PT.ODAYNRPT ---
PT Outpatient Daily Note OP Daily Note Outpatient Physical Therapy Treatment Date: 01/23/25 Visit Reasons: S/P left TKA Subjective: Pt reports L knee is ok still not moving like he would like. Pt says [place] might be leaving out of the [place] weeks but not sure if he should wait because he wants to be able to complete his PT session. Objective: Please see flow sheet for ther ex list. Assessment: Performed manual PROM into knee flexion and extension within pt tolerance. Pt and pt daughter educated and instructed on heel prop and heel slides for HEP. Plan: Continue with pOC. Print out HEP. Length of Time (minutes) of Treatment: 30 Minutes Procedure Charges Therapeutic Exercise 30 minutes: Yes
--- NOTE | 2025-01-26 10:16 | PT.ODAYNRPT ---
PT Outpatient Daily Note OP Daily Note Outpatient Physical Therapy Treatment Date: 01/26/25 Visit Reasons: S/P left TKA Subjective: Pt shared that he will be going out of the country for a few weeks, will schedule more PT visits once he returns. Objective: Please see flow sheet for ther ex list. Assessment: Pt demonstrated good tolerance with interventions assigned. Pt instructed on updated HEP and given print out. Plan: Continue with pOC. Length of Time (minutes) of Treatment: 30 Minutes Procedure Charges Therapeutic Exercise 30 minutes: Yes
== END 2025-02-09 23:59 | disposition home or self-care (01) ==
LOC: CPTX 09:30
PROVIDERS: PCP Orthopaedic Surgery Adult Reconstructive Orthopaedic Surgery; Referring Provider Orthopaedic Surgery Adult Reconstructive Orthopaedic Surgery; Visit Provider Orthopaedic Surgery Adult Reconstructive Orthopaedic Surgery
DX: M25.562 Pain in left knee (principal); Z96.652 Presence of left artificial knee joint; I10 Essential (primary) hypertension; E11.9 Type 2 diabetes mellitus without complications
CPT/HCPCS: 97110; 97140

== ENCOUNTER 2025-03-20 13:53 | Outpatient (AMB) | payer MEDICARE, MEDICAID, SELFPAY ==
--- NOTE | 2025-03-20 14:11 | PD.ORTHCLVIS ---
Vital signs 03/20/25 14:12 Height 1.63 m Height Method Stated Weight 77.734 kg Weight Measurement Method Standing Scale BMI 29.2 BP 130/73 Blood Pressure Source Automatic Cuff Blood Pressure Location Left Upper Arm Position Sitting Respiration 18 Pulse 68 Pulse Source Monitor Temp 97.6 F Temp Source Temporal Artery Scan Pulse Oximetry (%) 97 Oxygen Delivery Method Room Air Med/Allergies Allergies & Medications Allergies No Known Drug Allergies Allergy (Verified 03/20/25 14:13) Medication Reconciliation amlodipine 10 mg tablet 10 mg PO QDAY 12/09/24 [History Confirmed 03/20/25] lisinopril 20 mg tablet 20 mg PO QDAY 12/09/24 [History Confirmed 03/20/25] metformin 500 mg tablet 500 mg PO BID 12/09/24 [History Confirmed 03/20/25] doxycycline hyclate 100 mg tablet 100 mg PO BID #14 tabs 12/10/24 [Rx Confirmed 03/20/25] gabapentin 300 mg capsule 300 mg PO .qhs #30 caps 12/10/24 [Rx Confirmed 03/20/25] sennosides 8.6 mg-docusate sodium 50 mg tablet (Senna-S) 1 tab-cap PO QDAY #30 tabs 12/10/24 [Rx Confirmed 03/20/25] acetaminophen 500 mg tablet (Acetaminophen Extra Strength) 1,000 mg (2 x 500 mg) PO Q6H PRN pain #90 tabs 12/25/24 [Rx Confirmed 03/20/25] oxycodone 5 mg tablet 5 mg PO Q6H PRN pain #28 tabs 01/22/25 [Rx Confirmed 03/20/25] Exam Exam Patient is in no acute distress and is cooperative with the examination today. Breathing is nonlabored. In no respiratory distress. Bilateral extremities were evaluated and demonstrates sensation intact to light touch. Palpable pedal pulses are present. No significant edema is present. Bilateral hips were examined. The patient has no pain with log roll of the hips. Internal rotation to 30 degrees and external rotation to 30 degrees is painless. Negative FADIR. Left knee incision is c/d/i. ROM is 0-100 Right knee demonstrates varus deformity. Tender to palpation medially. Range of motion is 0 to 100 degrees. The knee feels stable to varus and valgus stress as well as AP translation X-rays of the right knee demonstrate complete obliteration of the medial joint space and varus deformity. Osteophytes are present. Assessment and Plan Problem List (1) Degenerative arthritis of knee, bilateral: Status: Acute Plan: Patient is a pleasant 74-year-old male with bilateral knee pain and bilateral knee arthritis. He is doing well s/p L TKA. He is doing well status post left total knee replacement reports that the right knee is affecting his quality life and happiness. We discussed anti-inflammatories, injections, and physical therapy. He is actually tried all these treatments already reports that there is still persistent pain is affecting his quality life and happiness. We just considered a right total knee replacement as a reasonable option The nature and purpose of the total knee replacement, alternative method(s) of treatment, the material risks involved, and the possibility of complications were fully explained to the patient. The patient does NOT have any of the following contraindications to TKA: - Active infection of the knee joint, OR - Active systemic bacteremia, OR - Active skin infection or open wound at surgical site, OR - Neuropathic arthritis, OR - Severe, rapidly progressive neurological disease, OR - Severe medical condition that makes risks of surgery outweigh the potential benefit The patient was told the most common risks and complications associated with a total knee replacement include, but are not limited to: blood clots in the leg, fatal pulmonary embolism, dislocation of the prosthesis, intraoperative and postoperative fractures of the femur or tibia, infection, failure of the prosthesis or grafting materials, complications from anesthesia, reactions to blood transfusions, postoperative leg length inequality, instability of the knee replacement, nerve damage or injury, vascular injury, delayed wound healing, infection, other injury or even . In addition, there are risks associated with anesthesia given during this operation. Also, the patient was told that after undergoing a total knee replacement there may still be persistent pain or disability. The patient was informed that the success of this operation in part depends upon the mechanical devices which are going to be implanted and that these devices can fail or malfunction, and may need to be repaired or replaced and there are no guarantees as to the longevity of this device or its parts and that it or its parts could fail prematurely. The patient was also notified that during the course of surgery, there may be a need to use bone graft from donors, and that any bone graft used will be carefully screened for communicable diseases, including AIDS, hepatitis, Helio-Creutzfeldt, or other diseases, but despite the screening procedures, there is a small chance that they could contract one of these diseases. Finally, the patient was asked to follow completely and fully with all advice and recommended treatments, and that recovery and ultimate outcome are affected by their compliance with recommended treatment. We discussed the risks, benefits and treatment alternatives, and the patient is interested in proceeding with surgery. We will try to set this up as expeditiously as possible. Advanced Care Planning Discussion Advance care planning discussed with:: patient and child Office Procedures GNS Level of Care Nursing/Assessment Patient Status: Established Patient Nursing Assessment/Reassesment: Medication Reconciliation, Update PMH in EMR and Vital Signs Coordination of Care: Complex Care and Chronic Disease 1-5, Education Complex Pt/Fam, Consent,records obtained, informed consent, Results/Orders obtained and Staff clarify orders Special Needs: Language special needs Established Patient Charge Established Patient Point Assignment: 95 Established Patient Point Charge: Level 3 (80-115) MA Intake Visit Data Collection New Patient or Established: Established Patient (seen at [facility] within 3 years) Reason for Visit:: TKA FOLLOW UP Seen by Clinical Staff ONLY (RN/MA): No Qualitative Field Coordinator Required: Yes PCP or OBGYN visit in last 3 months: Yes Hx Now: No Do You Feel Safe at Home: Yes Authorities Contacted: N/A Questionairres Past Medical History Past Medical History Have you ever been diagnosed with any of the following: Neurological Problems Cerebrovascular Accident (CVA): No Seizures: No Cardiology Problems Hypercholesterolemia: Yes Congestive Heart Failure: No Hypertension: Yes Respiratory Problems Chronic Obstructive Pulmonary Disease (COPD): No Smoking: No Smoking Exposure: No Stomache/Intestinal Problems Hepatitis: No Obesity: Yes Genital/Urinary Problems Renal Disease: No Musculoskeletal Problems Arthritis: Yes Endocrine Problems Diabetes Mellitus Type 1: No Diabetes Mellitus Type 2: Yes Blood Problems Anemia: Yes Other Problems Hospitalization: Yes (DM) Shingles: No Blood Transfusions: No Blood Transfusion Reaction: No Anesthesia Reactions: No Cancer: No Surgical History Total Knee Replacement: Yes Subjective Visit Visit for: follow up visit, post op #3 and knee Immunization / Flu Flu Vaccine in the Last 12 Months: No Flu Vaccine Exclusion Criteria: No Exclusion Criteria History of Present Illness Chief complaint: left knee replacement Patient is 16 weeks postop status post left total knee replacement. He is doing well. He is using a cane and is doing well. His right knee is affecting his quality of life. He reports the pain is severe and is affecting his ability to walk. His left knee feels great but he does have pain at night on the right knee. He has tried multiple injections, anti-inflammatories, and formal physical therapy. He would just like to proceed with a total knee replacement Personal History Red flag PMH: none Pain Pain level (0-10): 3 Pain duration: AT NIGHT Pain location: posterior Pain quality: aching Pain timing: night Associated signs & symptoms: none Ambulatory data Ambulatory device: none Walking distance (minutes): 1 Treatments Number of previous injections: 0 Improvement with previous injections: No Number of Physical Therapy sessions: 0 Improvement with PT: Yes Improvement with NSAIDS: no Review of Systems Review of Systems: All systems negative unless otherwise noted in HPI.
[2025-03-20 14:12] VITALS: BP 130/73; PULSE 68; RESP 18; TEMP 36.4; O2SAT 97; BMI 29.2
== END 2025-03-20 14:33 | disposition home or self-care (01) ==
LOC: HODSRG 13:53
PROVIDERS: PCP Physician Assistant; Referring Provider Physician Assistant; Supervising Provider Orthopaedic Surgery Adult Reconstructive Orthopaedic Surgery; Visit Provider Orthopaedic Surgery Adult Reconstructive Orthopaedic Surgery
DX: M17.0 Bilateral primary osteoarthritis of knee (principal); M25.562 Pain in left knee; M25.561 Pain in right knee; Z96.652 Presence of left artificial knee joint; E78.00 Pure hypercholesterolemia, unspecified; I10 Essential (primary) hypertension; E11.9 Type 2 diabetes mellitus without complications; E66.9 Obesity, unspecified; Z68.29 Body mass index [BMI] 29.0-29.9, adult
CPT/HCPCS: 99213; G0463

== ENCOUNTER 2025-03-23 16:30 | Outpatient (RCR) | payer MEDICARE, MEDICAID, SELFPAY ==
--- NOTE | 2025-03-16 17:21 | PT.ODAYNRPT ---
PT Outpatient Daily Note OP Daily Note Outpatient Physical Therapy Treatment Date: 03/16/25 Visit Reasons: S/P Left tka Subjective: [place] was [place] and reports less pain in the knee Objective: See F/S for therex Assessment: Knee flexion ROM is 103 degrees and extension is -3 deg Plan: Conitinue per POC Length of Time (minutes) of Treatment: 30 Minutes Procedure Charges Therapeutic Exercise 30 minutes: Yes
--- NOTE | 2025-03-19 14:13 | PT.ODAYNRPT ---
PT Outpatient Daily Note OP Daily Note Outpatient Physical Therapy Treatment Date: 03/19/25 Visit Reasons: S/P Left tka Subjective: Pt reports more pain in the knee today, not sure why Objective: See F/S for therex Assessment: Knee flexion ROM is 103 degrees and extension is -3 deg Plan: Conitinue per POC Length of Time (minutes) of Treatment: 30 Minutes Procedure Charges Therapeutic Exercise 30 minutes: Yes
--- NOTE | 2025-03-23 17:03 | PT.ODS1RPT ---
PT OP Progress/Discharge Note Date of Service: 03/23/25 Progress Note/DC Note Progress Note/Discharge Note: DC Note Patient Information Visit Reasons: S/P Left tka Service Continue Service or Discharge: Discharge Discharge Date: 03/23/25 Status Subjective: Low L knee pain, doing HEP, ambulating without cane. The R knee is hurting more than the L. Objective: See F/S for therex L knee AROM: PROM: Flexion: 88 deg 100 deg Extension: -8 deg -5 deg Strength: Quads and hamstrings 4+/5 Assessment: Pt has attended the eval and 12 Rx sessions with good progress with therapy goals. He is ambulating without assistive device with improved knee extension. L knee flexion ROM is limited by myofascial limitations at about 100 deg which is shy of 115 deg goal and progress has plateaued with that. Plan: D/C with HEP Procedure Charges Therapeutic Exercise 30 minutes: Yes
== END 2025-04-12 23:59 | disposition home or self-care (01) ==
LOC: CPTX 16:30
PROVIDERS: PCP Orthopaedic Surgery Adult Reconstructive Orthopaedic Surgery; Referring Provider Orthopaedic Surgery Adult Reconstructive Orthopaedic Surgery; Visit Provider Orthopaedic Surgery Adult Reconstructive Orthopaedic Surgery
DX: M25.562 Pain in left knee (principal); Z96.652 Presence of left artificial knee joint; I10 Essential (primary) hypertension; E11.9 Type 2 diabetes mellitus without complications
CPT/HCPCS: 97110

== ENCOUNTER → 2025-04-01 | Outpatient (CLI) | payer MEDICARE, MEDICAID, SELFPAY ==
--- NOTE | 2025-04-01 15:30 | XR_ITS ---
Examination: CT right lower extremity, without contrast. 2-D sagittal reconstructions. 2-D coronal reconstructions. 3-D reconstructions. Date and time of exam:April 01, 2025 1545 hours INDICATIONS: Diagnosis primary unilateral osteoarthritis right knee, right knee pain 10 years CTDI: vol (mGy):25.93 DLP: (mGycm):842 Technique: Multiple 1.25 mm axial sections of the right lower extremity without intravenous contrast have been obtained. 2-D sagittal and coronal reconstructions have been obtained. 3-D reconstructions have been obtained. Low dose protocols were performed. One or more of the following dose reduction techniques were used; automated exposure control, adjustment of the mA and/or KV according to patient size, use of iterative reconstruction technique. Findings: Moderate osteopenia Moderate narrowing right hip joint No right hip fracture or dislocation No avascular necrosis Advanced right knee tricompartment osteoarthritis, including severe narrowing medial joint space No patellar dislocation No avascular necrosis IMPRESSION: Advanced tricompartment osteoarthritis right knee
== END | disposition home or self-care (01) ==
PROVIDERS: PCP Physician Assistant; Referring Provider Orthopaedic Surgery Adult Reconstructive Orthopaedic Surgery; Visit Provider Orthopaedic Surgery Adult Reconstructive Orthopaedic Surgery
DX: M17.11 Unilateral primary osteoarthritis, right knee (principal)
CPT/HCPCS: 73700

== ENCOUNTER 2025-04-06 08:35 | Day surgery (SDC) | payer MEDICARE, MEDICAID, SELFPAY ==
[2025-04-01 10:00] VITALS: BMI 31.1
[2025-04-01 11:10] LABS: Basophils # (Auto) 0.0 Thou/mm3 (0.0-0.2); Basophils % (Auto) 0 % (0-2.5); Eosinophils # (Auto) 0.5 Thou/mm3 (0.0-0.5); Eosinophils % (Auto) 7 % (0-10); Hematocrit 40.9 % (41.0-53.0); Hemoglobin 12.6 g/dL (13.5-16.0); Immature Granulocytes Auto 0.02 Thou/mm3 (0.00-0.00); Lymphocytes # (Auto) 1.8 Thou/mm3 (1.0-4.8); Lymphocytes % (Auto) 24 % (10-50); Mean Corpuscular HGB Conc 30.8 g/dl (31.0-37.0); Mean Corpuscular Hemoglobin 26.7 pg (25.0-35.0); Mean Corpuscular Volume 87 fL (80-100); Monocytes # (Auto) 0.7 Thou/mm3 (0.0-0.8); Monocytes % (Auto) 9 % (0-12); Neutrophils # (Auto) 4.4 Thou/mm3 (1.8-7.7); Neutrophils % (Auto) 59 % (37-80); Nucleated Red Blood Cell # 0.00 Thou/mm3 (0.00-0.00); Nucleated Red Blood Cell % 0 /100 WBC (0); Platelet Count 293 Thou/mm3 (140-440); RDW Standard Deviation 49.4 fL (35.1-43.9); Red Blood Count 4.72 Miln/mm3 (4.50-5.90); White Blood Count 7.3 Thou/mm3 (3.8-10.6)
[2025-04-01 11:17] LABS: INR 1.0 (0.9-1.3); Partial Thromboplastin Time 25.4 Seconds (22.0-36.0); Prothrombin Time 11.2 Seconds (9.0-12.2)
[2025-04-01 11:20] LABS: Alanine Aminotransferase 13 U/L (10-49); Albumin, Serum 4.6 gm/dL (3.4-4.8); Albumin/Globulin Ratio 2.0 (1.2-2.2); Alkaline Phosphatase 88 U/L (46-116); Anion Gap 11 (7-16); Aspartate Amino Transferase 17 U/L (0-34); BUN/Creatinine Ratio 12 Ratio (12-20); Bilirubin,Total 0.6 mg/dL (0.3-1.2); Blood Urea Nitrogen 13 mg/dL (9-23); Calcium 10.0 mg/dL (8.3-10.6); Calcium (Corrected) 10.0 mg/dL (8.5-10.1); Carbon Dioxide 27.4 mMol/L (20.0-31.0); Chloride 105 mMol/L (98-107); Creatinine (Component) 1.1 mg/dL (0.6-1.3); Estimated Creatinine Clearance 54.7 mL/min (>60); Globulin 2.3 gm/dL (2.3-3.5); Glucose 109 mg/dL (74-106); Osmolality,Calculated 286 (275-295); Potassium 4.3 mMol/L (3.4-5.1); Sodium 143 mMol/L (136-145); Total Protein 6.9 gm/dL (5.7-8.2); eGFR > 60 See Note
--- NOTE | 2025-04-01 12:30 | SUR.PREOP ---
Pt had Left knee replacement on 12/10/24, pt stated had left arm weakness at discharge from surgery. Pt came in to ER 12/11 for left arm weakness and was admitted for R/O stroke, pt was discharge with plavix 75mg daily for 30 days, pt stated on his last primary Dr office 3 weeks ago he was prescribed plavix again and has been taking it, last dose was yesterday 03/31, pt is waiting for neurology consult, left arm weakness has completely resolved. I instructed pt to hold Plavix and updated MA at Dr Davis's office.
--- NOTE | 2025-04-03 12:40 | SUR.PREOP ---
Cardiac records and history of R/O stroke from last knee surgery reviewed with Dr Pantoja.
[2025-04-06] VITALS (15 sets, daily range): BP systolic 126–169; BP diastolic 79–104; PULSE 66–106; RESP 12–20; TEMP 36.6–37.2; O2SAT 95–100; BMI 31.4
[2025-04-06] MEDS: RINGERS LACTATED 1000 ML 1,000 ML 20 ML IV (09:28)
[2025-04-06] MEDS: ACETAMINOPHEN 325 MG TABLET 650 MG PO (09:28)
[2025-04-06] MEDS: PREGABALIN 75 MG CAPSULE PO (09:29)
[2025-04-06] MEDS: MELOXICAM 7.5 MG TABLET PO (09:29)
--- NOTE | 2025-04-06 10:40 | XR_ITS ---
Examination: Right knee 2 views TECHNIQUE: AP lateral right knee 2 views Date and time: April 06, 2025 1248 hours INDICATIONS: Postop right knee replacement FINDINGS: Total right knee arthroplasty. Satisfactory alignment. No fracture IMPRESSION: Total right knee arthroplasty with satisfactory alignment
--- NOTE | 2025-04-06 11:44 | PD.SUROPNT ---
Date of Procedure 04/06/25 Pre Op Diagnosis right knee osteoarthritis Post Op Diagnosis right knee osteoarthritis Procedure right total knee replacement Findings full thickness cartilage loss and osteophytes Procedure Description Indication: The patient is a 74 year old who has a long history of right knee pain. X-rays show degenerative arthritis involving the knee. Over the past several years the patient has had increasing pain, progressive limitation in function. He has failed conservative measures including activity modification, physical therapy, injections, anti-inflammatories, and assistive devices. After a lengthy discussion of the risks and benefits, the patient presents now for total knee replacement. The nature and purpose of the total knee replacement, alternative method(s) of treatment, the material risks involved, and the possibility of complications were fully explained to the patient. The patient was told the most common risks and complications associated with a total knee replacement include, but are not limited to blood clots in the leg, fatal pulmonary embolism, dislocation of the prosthesis, intraoperative and postoperative fractures of the femur or tibia, infection, failure of the prosthesis or grafting materials, complications from anesthesia, reactions to blood transfusions, postoperative leg length inequality, instability of the knee replacement, nerve damage or injury, vascular injury, delayed wound healing, infections, other injury or even . In addition, there are risks associated with anesthesia given during this operation, temporary or permanent numbness on the skin lateral to the incision can be a complication unique to total knee surgery, and kneeling can be painful after knee replacement surgery. Also, the patient was told that after undergoing a total knee replacement there may still be pain or disability. We discussed with the patient that we will be using a robot-assisted technology. We discussed that there is a possibility of converting to manual instrumentation. The patient was informed that the success of this operation in part depends upon the mechanical devices which are going to be implanted and that these devices can fail or malfunction, and may need to be repaired or replaced and there are no guarantees as to the longevity of this device or its part and that it or its parts could fail prematurely. Finally, the patient was asked to follow completely and fully with all advice and recommended treatments, and that recovery and ultimate outcome are affected by their compliance with recommended treatment. Surgical technique: Patient was marked and consented in the pre-operative area. The patient was brought to the operating room and placed on the operating table in a supine position. Prior to positioning, a timeout procedure was performed between the surgeon, the anesthesiologist, and the nursing staff where the patient and the operative side were identified and confirmed. After adequate general anesthetic was obtained, the right lower extremity was prepped and draped in the usual sterile fashion. A weight based dose of Cefazolin were administered within 1 hour prior to incision. The robot was preregistered and calirated before the incision. The extremity was exsanguinated with an esmarch badge and tourniquet inflated to 250mmHg. A midline incision was made. A median parapatellar arthrotomy was made. The patella was subluxed laterally. A medial release was performed to expose the medial tibia. His femoral and tibial pins were placed through an intra incisional manner for both cases. Every effort was made to ensure that the distalmost aspect of the pin was hung in the second cortex. The arrays were then tightened several times to ensure that it was fixed for the remainder of the case. Both femoral and tibial checkpoints were then placed. We then went through the registration process of the bone. We then assessed the knee deformity and attempted to correct it. We also used the robot to aid in judging laxity in both extension and flexion. Final based on laxity and alignment we changed the preoperative assessment to obtain proper proper implant positioning and to correct deformity. Attention was then placed to the tibia. We made a tibial cut using the robot ensuring that both the MCL and the patella tendon were protected with retractors. We then went to the femur and made the posterior cut followed by the anterior cut and the anterior chamfer. The bone was then removed and we made a distal femur cut and a posterior chamfer cut. We verified all cuts. A trial reduction was performed with a size 6 femoral component and a size 5 keeled tibial component. The patella tracked centrally, and no lateral retinacular release was necessary. The trial implants were removed. The arrays, pins, and checkpoints were all removed. We performed a verification that all pins were removed. The cut bone surfaces were lavaged. A size 6 right femoral component, a size 5 keeled tibial component were impacted into position. The knee was felt to be well balanced in the sagittal and coronal plane. The final 5x10 mm cruciate-substituting articular insert was impacted into the tibial tray. The knee was brought out to full extension, flexed up to 120 degrees. It was stable to varus and valgus stress and appropriately balanced in flexion and extension. The wounds were copiously irrigated following deflation of tourniquet. The medial retinaculum was reapproximated with #1 vicryl and quill. The subcutaneous tissues were closed with 0 and 2-0 interrupted Vicryl. The skin was closed with 3-0 Monofilament V loc suture. A sterile dressing was applied. The patient was transferred to a bed and brought to recovery in stable condition. The patient tolerated the procedure well. There were no intraoperative complications. Sponge and needle counts were correct times 2. As the attending surgeon, Rowan george I was present and performed the entire operation. Grafts/Implants Size 6 CR Femur Size 5 Tibia 10mm poly CS Anesthesia spinal Implants radha Pathology / specimen None Pathology comment: none Estimated Blood Loss 150 Condition Stable Disposition same day Surgeon Michael Davis MD Surgical Staff Operation Date: 04/06/25 13:15 Case Staff CUSTOMER SERVICE SECURITY OFFICER: Mal Rodriguez RNtruck sales representative: Imelda Vu
--- NOTE | 2025-04-06 12:03 | SUR.PHASEI ---
pt arrived to PACU via gurney drowsy but arouses to voice, breathing unlabored, dressing to right lower extremity clean, dry, and intact, bilateral pedal pulses present/equal bilaterally, circulation to bilateral toes WNL, report from Keyonna LOVING, Freddie BRITT, and Mal MARQUEZ.
--- NOTE | 2025-04-06 12:13 | SUR.PHASEI ---
report to Abigail Gilbert RN
--- NOTE | 2025-04-06 12:13 | SUR.PHASEI ---
1213 Report received from Abigail Chicas RN, patient awake and talking with staff, on oxygen 4L via oxy mask, breathing unlabored, vital signs stable, denies pain, dressing intact; no bleeding noted, denies nausea
--- NOTE | 2025-04-06 13:53 | SUR.PHASEII ---
patient cleared by physical therapy Jeannie to proceed with discharge, however patient unable to void in restroom, will encourage more fluids
--- NOTE | 2025-04-06 14:00 | SUR.PHASEII ---
1440 Patient voided 200ml in urinal, will proceed with discharge
--- NOTE | 2025-04-06 14:05 | SUR.PHASEII ---
patient ate a yogurt tolerated well
--- NOTE | 2025-04-06 14:53 | SUR.PHASEII ---
1453 Patient meets discharge criteria from recovery, awake and alert, breathing unlabored, vital signs stable, denies pain, dressing intact; no bleeding noted, patient ate a sandwich, chips, fruit and drinking fluids; tolerated well, denies nausea, voided in urinal prior to discharge, assisted with dressing into his clothing by his , discharge instructions given with the assistance telephone machine or machinery mechanic Maggie ID# [id number] to patient and patient daughter/, daughter signed discharge instructions. Patient given all his belongings prior to discharge, transported via wheelchair and left in a private vehicle.
== END 2025-04-06 14:53 | disposition home or self-care (01) ==
PROVIDERS: Anesthesiology; PCP Physician Assistant; Referring Provider Orthopaedic Surgery Adult Reconstructive Orthopaedic Surgery; Visit Provider Orthopaedic Surgery Adult Reconstructive Orthopaedic Surgery
PROC: (CPT 27447; principal; 2025-04-06 13:00)
DX: M17.11 Unilateral primary osteoarthritis, right knee (principal); M25.761 Osteophyte, right knee; E78.5 Hyperlipidemia, unspecified; I10 Essential (primary) hypertension; E11.9 Type 2 diabetes mellitus without complications; Z79.899 Other long term (current) drug therapy; Z79.1 Long term (current) use of non-steroidal anti-inflammatories (NSAID); Z79.84 Long term (current) use of oral hypoglycemic drugs
CPT/HCPCS: 27447; 20985; 36415; 73560; 80053; 85025; 85610; 85730; 97162; A4217; A4649; C1713; C1776; J0690; J1100; J2371; J2405; J2704; J2710; J2795; J3010; J3490; J7120; J7999; A4648; A9270; J1596

== ENCOUNTER 2025-04-21 11:21 | Outpatient (AMB) | payer MEDICARE, MEDICAID, SELFPAY ==
--- NOTE | 2025-04-21 11:30 | PD.ORTHCLVIS ---
Med/Allergies Allergies & Medications Allergies No Known Drug Allergies Allergy (Verified 04/06/25 12:13) Exam Exam Patient is in no acute distress and is cooperative with the examination today. Breathing is nonlabored. In no respiratory distress. Bilateral extremities were evaluated and demonstrates sensation intact to light touch. Palpable pedal pulses are present. No significant edema is present. Bilateral hips were examined. The patient has no pain with log roll of the hips. Internal rotation to 30 degrees and external rotation to 30 degrees is painless. Negative FADIR. Left knee incision is c/d/i. ROM is 0-100 Right knee incision is c/d/i Assessment and Plan Problem List (1) Degenerative arthritis of knee, bilateral: Status: Acute Plan: Patient is a pleasant 74-year-old male with bilateral knee pain and bilateral knee arthritis. He is doing well s/p R TKA. We will see him back in 6 weeks for routine followup Advanced Care Planning Discussion Advance care planning discussed with:: patient and child Questionairres Past Medical History Past Medical History Have you ever been diagnosed with any of the following: Neurological Problems Cerebrovascular Accident (CVA): No Seizures: No Cardiology Problems Hypercholesterolemia: Yes Congestive Heart Failure: No Hypertension: Yes Respiratory Problems Chronic Obstructive Pulmonary Disease (COPD): No Smoking: No Smoking Exposure: No Stomache/Intestinal Problems Hepatitis: No Obesity: No Genital/Urinary Problems Renal Disease: No Musculoskeletal Problems Arthritis: Yes Endocrine Problems Diabetes Mellitus Type 1: No Diabetes Mellitus Type 2: Yes Blood Problems Anemia: Yes Other Problems Hospitalization: Yes (DM) Shingles: No Blood Transfusions: No Blood Transfusion Reaction: No Anesthesia Reactions: No Cancer: No Surgical History Total Knee Replacement: Yes Subjective Visit Visit for: follow up visit, post op #3 and knee Immunization / Flu Flu Vaccine in the Last 12 Months: No Flu Vaccine Exclusion Criteria: No Exclusion Criteria History of Present Illness Chief complaint: left knee replacement Patient is 16 weeks postop status post left total knee replacement. He is doing well. He is now 2 weeks s/p L TKA. Personal History Red flag PMH: none Pain Pain level (0-10): 3 Pain duration: AT NIGHT Pain location: posterior Pain quality: aching Pain timing: night Associated signs & symptoms: none Ambulatory data Ambulatory device: none Walking distance (minutes): 1 Treatments Number of previous injections: 0 Improvement with previous injections: No Number of Physical Therapy sessions: 0 Improvement with PT: Yes Improvement with NSAIDS: no Review of Systems Review of Systems: All systems negative unless otherwise noted in HPI.
== END 2025-04-21 11:34 | disposition home or self-care (01) ==
LOC: HODSRG 11:21
PROVIDERS: PCP Family Medicine; Referring Provider Family Medicine; Supervising Provider Orthopaedic Surgery Adult Reconstructive Orthopaedic Surgery; Visit Provider Orthopaedic Surgery Adult Reconstructive Orthopaedic Surgery
DX: M17.0 Bilateral primary osteoarthritis of knee (principal); M25.562 Pain in left knee; M25.561 Pain in right knee; Z96.651 Presence of right artificial knee joint; I10 Essential (primary) hypertension; E78.00 Pure hypercholesterolemia, unspecified; E11.9 Type 2 diabetes mellitus without complications
CPT/HCPCS: 99213; G0463

== ENCOUNTER 2025-04-28 09:31 | Outpatient (AMB) | payer MEDICARE, MEDICAID, SELFPAY ==
[2025-04-28 09:51] VITALS: BP 114/64; PULSE 90; RESP 18; TEMP 36.2; O2SAT 96; BMI 30.2
--- NOTE | 2025-04-28 09:51 | PD.ORTHCLVIS ---
Vital signs 04/28/25 09:51 Height 1.57 m Height Method Measured Weight 74.588 kg Weight Measurement Method Standing Scale BMI 30.2 BP 114/64 Blood Pressure Source Automatic Cuff Blood Pressure Location Left Upper Arm Position Sitting Respiration 18 Pulse 90 Pulse Source Monitor Temp 97.1 F Temp Source Temporal Artery Scan Pulse Oximetry (%) 96 Oxygen Delivery Method Room Air Med/Allergies Allergies & Medications Allergies No Known Drug Allergies Allergy (Verified 04/28/25 09:57) Medication Reconciliation amlodipine 10 mg tablet 10 mg PO QDAY 12/09/24 [History Confirmed 04/28/25] lisinopril 20 mg tablet 20 mg PO QDAY 12/09/24 [History Confirmed 04/28/25] metformin 500 mg tablet 500 mg PO BID 12/09/24 [History Confirmed 04/28/25] atorvastatin 40 mg tablet 40 mg PO HS 04/01/25 [History Confirmed 04/28/25] clopidogrel 75 mg tablet 75 mg PO DAILY 04/01/25 [History Confirmed 04/28/25] acetaminophen 500 mg tablet (Acetaminophen Extra Strength) 1,000 mg (2 x 500 mg) PO Q6H PRN pain #90 tabs 04/06/25 [Rx Confirmed 04/28/25] aspirin 81 mg tablet,delayed release 81 mg PO BID #60 tabs 04/06/25 [Rx Confirmed 04/28/25] doxycycline hyclate 100 mg tablet 100 mg PO BID #14 tabs 04/06/25 [Rx Confirmed 04/28/25] gabapentin 300 mg capsule 300 mg PO .qhs #30 caps 04/06/25 [Rx Confirmed 04/28/25] sennosides 8.6 mg-docusate sodium 50 mg tablet (Senna-S) 1 tab-cap PO QDAY #30 tabs 04/06/25 [Rx Confirmed 04/28/25] oxycodone 5 mg tablet 5 mg PO Q6H PRN pain #28 tabs 04/17/25 [Rx Confirmed 04/28/25] Exam Exam Patient is in no acute distress and is cooperative with the examination today. Breathing is nonlabored. In no respiratory distress. Bilateral extremities were evaluated and demonstrates sensation intact to light touch. Palpable pedal pulses are present. No significant edema is present. Bilateral hips were examined. The patient has no pain with log roll of the hips. Internal rotation to 30 degrees and external rotation to 30 degrees is painless. Negative FADIR. Left knee incision is c/d/i. ROM is 0-100 Right knee incision is c/d/i Assessment and Plan Problem List (1) Degenerative arthritis of knee, bilateral: Status: Acute Plan: Patient is a pleasant 74-year-old male with bilateral knee pain and bilateral knee arthritis. He is doing well s/p R TKA. We will see him back in 6 weeks for routine followup Advanced Care Planning Discussion Advance care planning discussed with:: patient and child Office Procedures GNS Level of Care Nursing/Assessment Patient Status: Established Patient Nursing Assessment/Reassesment: Medication Reconciliation, Update PMH in EMR and Vital Signs Coordination of Care: Complex Care and Chronic Disease 1-5, Education Complex Pt/Fam, Consent,records obtained, informed consent, Results/Orders obtained and Staff clarify orders Special Needs: Language special needs Established Patient Charge Established Patient Point Assignment: 95 Established Patient Point Charge: Level 3 (80-115) MA Intake Visit Data Collection New Patient or Established: Established Patient (seen at [facility] within 3 years) Reason for Visit:: KNEE PAIN S/P SX Seen by Clinical Staff ONLY (RN/MA): No Associate Professor Of Literacy Required: Yes PCP or OBGYN visit in last 3 months: Yes Hx Now: No Do You Feel Safe at Home: Yes Authorities Contacted: N/A Questionairres Past Medical History Past Medical History Have you ever been diagnosed with any of the following: Neurological Problems Cerebrovascular Accident (CVA): No Seizures: No Cardiology Problems Hypercholesterolemia: Yes Congestive Heart Failure: No Hypertension: Yes Respiratory Problems Chronic Obstructive Pulmonary Disease (COPD): No Smoking: No Smoking Exposure: No Stomache/Intestinal Problems Hepatitis: No Obesity: No Genital/Urinary Problems Renal Disease: No Musculoskeletal Problems Arthritis: Yes Endocrine Problems Diabetes Mellitus Type 1: No Diabetes Mellitus Type 2: Yes Blood Problems Anemia: Yes Other Problems Hospitalization: Yes (DM) Shingles: No Blood Transfusions: No Blood Transfusion Reaction: No Anesthesia Reactions: No Cancer: No Surgical History Total Knee Replacement: Yes Subjective Visit Visit for: follow up visit, post op #1 and knee Immunization / Flu Flu Vaccine in the Last 12 Months: No Flu Vaccine Exclusion Criteria: No Exclusion Criteria History of Present Illness Chief complaint: TKA PAIN Patient is 16 weeks postop status post left total knee replacement. He is doing well. He is now 3 weeks s/p R TKA. He reports pain on the lateral aspect of the incision that feels like a burning pain. His ROM is still good Personal History Red flag PMH: none Pain Pain level (0-10): 6 Pain duration: ON AND OFF Pain location: anterior Pain quality: aching Pain timing: increases with activity Associated signs & symptoms: numbness Ambulatory data Ambulatory device: walker Walking distance (minutes): 1 Treatments Number of previous injections: 0 Improvement with previous injections: No Number of Physical Therapy sessions: 0 Improvement with PT: No Improvement with NSAIDS: no Review of Systems Review of Systems: All systems negative unless otherwise noted in HPI.
== END 2025-04-28 10:17 | disposition home or self-care (01) ==
PROVIDERS: PCP Family Medicine; Referring Provider Family Medicine; Supervising Provider Orthopaedic Surgery Adult Reconstructive Orthopaedic Surgery; Visit Provider Orthopaedic Surgery Adult Reconstructive Orthopaedic Surgery
DX: M17.0 Bilateral primary osteoarthritis of knee (principal); M25.562 Pain in left knee; M25.561 Pain in right knee; Z96.651 Presence of right artificial knee joint; I10 Essential (primary) hypertension; E78.00 Pure hypercholesterolemia, unspecified; E11.9 Type 2 diabetes mellitus without complications
CPT/HCPCS: 99213; G0463

== ENCOUNTER 2025-05-07 13:30 | Outpatient (RCR) | payer MEDICARE, MEDICAID, SELFPAY ==
--- NOTE | 2025-05-06 08:33 | PTNOTE_ITS ---
PT OP Initial Eval Patient Information Outpatient Physical Therapy Treatment Date: 05/06/25 Visit Reasons: Post op TKA Medical Diagnosis: Z96.651 Treatment Dx #1: R knee pain Treatment Dx #2: Dec R knee ROM Start of Care: 05/06/25 Date of Onset: 04/06/25 Smoking Status Smoking Status: Never smoker Initial Assessment Subjective: Pt is 75 yr old urdu speaking male with his presents ambulating with 4WW s/p R TKA. Pt reports variable pain level, today it's higher. He is ambulating HH distances and outside the house for 30 minutes. PLOF: pt was ambulating without assistive device x community distances and independent with ADL's. PMH: DM, HTN, high cholesterol Pt goal: no pain with walking Objective: R knee ArOM: Extension: -10 deg Flexion: 83 deg SLR: 65 deg with extensor lag Strength: Quads: 3+/5 HS: 4-/5 Gait: ambulates with flexed knee step through gait with 4WW Assessment: Pt presentation consistent with post op R TKA with decreased ROM, strength ? and WB tolerance. Pt lacks knee extension and flexion is limited by ? myofascial limitations and pain.? Pt requires skilled therapy to improve ROM ? and strength and has good rehab potential.? Eval followed by HEP with printout. Short Term and Care Home Goals 1. Independent with HEP 2. Improved knee ROM to full extension to 115 deg flexion 3. Improved quad and hamstring strength to 4+/5 4. Improved ambulatory tolerance to community distances with symmetrical ?? gait pattern.??? Treatment Plan ?1. Manual therapy ? 2. Therex ? 3. Modalities as indicated, moist heat, ice, estim Frequency and Duration: 2-3x a week for 18 visits Certification Dates: 05/06/25 to 08/04/25 Procedure Charges OP PT Eval Mod Complex 30 minutes: Yes
--- NOTE | 2025-05-07 14:37 | PT.ODAYNRPT ---
PT Outpatient Daily Note OP Daily Note Outpatient Physical Therapy Treatment Date: 05/07/25 Visit Reasons: Post op TKA Subjective: Pt reports he is doing well and eager to begin with PT. Objective: See F/S for therex performed Assessment: Min vc's required to avoid trunk rotation with lateral steps; able to self correct. Performed steps over hurdles best with vc's emphasizing heel strike and knee flexion; good compliance. Good tolerance with passive knee flexion stretch along with overpressure for knee ext. Advised to continue with HEP. Plan: Continue with POC Length of Time (minutes) of Treatment: 30 Minutes Procedure Charges Therapeutic Exercise 30 minutes: Yes
== END 2025-05-12 23:59 | disposition home or self-care (01) ==
LOC: CPTX 13:30
PROVIDERS: PCP Orthopaedic Surgery Adult Reconstructive Orthopaedic Surgery; Referring Provider Orthopaedic Surgery Adult Reconstructive Orthopaedic Surgery; Visit Provider Orthopaedic Surgery Adult Reconstructive Orthopaedic Surgery
DX: M25.561 Pain in right knee (principal); Z96.651 Presence of right artificial knee joint; E11.9 Type 2 diabetes mellitus without complications; I10 Essential (primary) hypertension
CPT/HCPCS: 97110; 97162

== ENCOUNTER 2025-06-01 15:30 | Outpatient (RCR) | payer MEDICARE, MEDICAID, SELFPAY ==
--- NOTE | 2025-05-13 16:28 | PT.ODAYNRPT ---
PT Outpatient Daily Note OP Daily Note Outpatient Physical Therapy Treatment Date: 05/13/25 Visit Reasons: Post op TKA Subjective: Pt reports is doing well with no pain and compliant with HEP Objective: See F/S for therex performed Assessment: Improved tolerance with LLPS to Rt knee w/ 10lb wt along with manual overpressure to promote full knee extension. No pain/dicomfort with therex. Advised patient to continue with HEP with emphasis on increasing knee flexion. Plan: Continue with POC Length of Time (minutes) of Treatment: 30 Minutes Procedure Charges Therapeutic Exercise 30 minutes: Yes
--- NOTE | 2025-05-18 16:49 | PT.ODAYNRPT ---
PT Outpatient Daily Note OP Daily Note Outpatient Physical Therapy Treatment Date: 05/18/25 Visit Reasons: Post op TKA Subjective: Pt reports medial and lateral knee pain and is doing extension stretches every 3rd day with pain Objective: See F/S for therex Assessment: Improved PROM into extension today to about -5 deg. Advised patient to continue with HEP with emphasis on increasing knee extension since he ambulates with flexed knee Plan: Continue with POC Length of Time (minutes) of Treatment: 30 Minutes Procedure Charges Therapeutic Exercise 30 minutes: Yes
--- NOTE | 2025-05-20 17:44 | PT.ODAYNRPT ---
PT Outpatient Daily Note OP Daily Note Outpatient Physical Therapy Treatment Date: 05/20/25 Visit Reasons: Post op TKA Subjective: Pain with bending the knee Objective: See f/S for therex PROM into flexion x1' AAROM with strap into flexion is 101 deg Assessment: Stopped manual therapy due to pain response into flexion. Pt has high pain at end-range. Plan: Continue per POC Length of Time (minutes) of Treatment: 30 Minutes Procedure Charges Therapeutic Exercise 30 minutes: Yes
--- NOTE | 2025-05-27 17:36 | PT.ODAYNRPT ---
PT Outpatient Daily Note OP Daily Note Outpatient Physical Therapy Treatment Date: 05/27/25 Visit Reasons: Post op TKA Subjective: Pain with bending the knee Objective: See f/S for therex Assessment: Pt has high pain at end-range knee flexion and ambulates with flexed knees B Plan: Continue per POC Length of Time (minutes) of Treatment: 30 Minutes Procedure Charges Therapeutic Exercise 30 minutes: Yes
--- NOTE | 2025-06-01 16:05 | PTNOTE_ITS ---
PT OP Progress/Discharge Note Date of Service: 06/01/25 Progress Note/DC Note Progress Note/Discharge Note: DC Note Patient Information Visit Reasons: Post op TKA Service Continue Service or Discharge: Discharge Discharge Date: 06/01/25 Status Subjective: Low R knee pain, doing HEP, ambulating without cane, ready to D/C from therapy Objective: See F/S for therex R knee AROM: PROM: Flexion: 90 deg 101 deg Extension: -10 deg -5 deg Strength: Quads and hamstrings 4+/5 Assessment: Pt has attended the eval and 6 Rx sessions with good progress with therapy goals. He is ambulating without assistive device with improved ROM and strength. R knee flexion PROM is limited by myofascial limitations at about 101 deg which about the same as the other knee flexion ROM. He is ambulating [facility] with symmetrical pattern and has improved quad and HS strength to meet the goal of 4+/5. Plan: D/C with HEP Procedure Charges Therapeutic Exercise 30 minutes: Yes
== END 2025-06-12 23:59 | disposition home or self-care (01) ==
LOC: CPTX 15:30
PROVIDERS: PCP Orthopaedic Surgery Adult Reconstructive Orthopaedic Surgery; Referring Provider Orthopaedic Surgery Adult Reconstructive Orthopaedic Surgery; Visit Provider Orthopaedic Surgery Adult Reconstructive Orthopaedic Surgery
DX: M25.561 Pain in right knee (principal); Z96.651 Presence of right artificial knee joint; I10 Essential (primary) hypertension; E11.9 Type 2 diabetes mellitus without complications
CPT/HCPCS: 97110

== ENCOUNTER 2025-06-02 10:24 | Outpatient (AMB) | payer MEDICARE, MEDICAID, SELFPAY ==
--- NOTE | 2025-06-02 10:47 | ORTHONT_ITS ---
Vital signs 06/02/25 10:48 Height 1.57 m Height Method Measured Weight 74.871 kg Weight Measurement Method Standing Scale BMI 30.4 BP 148/77 H Blood Pressure Source Automatic Cuff Blood Pressure Location Left Upper Arm Position Sitting Respiration 19 Pulse 74 Pulse Source Monitor Temp 98.0 F Temp Source Temporal Artery Scan Pulse Oximetry (%) 97 Oxygen Delivery Method Room Air Med/Allergies Allergies & Medications Allergies No Known Drug Allergies Allergy (Verified 06/02/25 10:49) Medication Reconciliation amlodipine 10 mg tablet 10 mg PO QDAY 12/09/24 [History Confirmed 06/02/25] lisinopril 20 mg tablet 20 mg PO QDAY 12/09/24 [History Confirmed 06/02/25] metformin 500 mg tablet 500 mg PO BID 12/09/24 [History Confirmed 06/02/25] atorvastatin 40 mg tablet 40 mg PO HS 04/01/25 [History Confirmed 06/02/25] clopidogrel 75 mg tablet 75 mg PO DAILY 04/01/25 [History Confirmed 06/02/25] acetaminophen 500 mg tablet (Acetaminophen Extra Strength) 1,000 mg (2 x 500 mg) PO Q6H PRN pain #90 tabs 04/06/25 [Rx Confirmed 06/02/25] aspirin 81 mg tablet,delayed release 81 mg PO BID #60 tabs 04/06/25 [Rx Confirmed 06/02/25] doxycycline hyclate 100 mg tablet 100 mg PO BID #14 tabs 04/06/25 [Rx Confirmed 06/02/25] sennosides 8.6 mg-docusate sodium 50 mg tablet (Senna-S) 1 tab-cap PO QDAY #30 tabs 04/06/25 [Rx Confirmed 06/02/25] oxycodone 5 mg tablet 5 mg PO Q6H PRN pain #28 tabs 04/17/25 [Rx Confirmed 06/02/25] gabapentin 300 mg capsule 300 mg PO .qhs #30 caps 06/02/25 [Rx] Exam Exam Patient is in no acute distress and is cooperative with the examination today. Breathing is nonlabored. In no respiratory distress. Bilateral extremities were evaluated and demonstrates sensation intact to light touch. Palpable pedal pulses are present. No significant edema is present. Bilateral hips were examined. The patient has no pain with log roll of the hips. Internal rotation to 30 degrees and external rotation to 30 degrees is painless. Negative FADIR. Left knee incision is c/d/i. ROM is 0-100 Right knee incision is c/d/i Assessment and Plan Problem List (1) Degenerative arthritis of knee, bilateral: Status: Acute Plan: Patient is a pleasant 74-year-old male with bilateral knee pain and bilateral knee arthritis. He is doing well s/p R TKA. We will see him back in 8 weeks for routine followup Advanced Care Planning Discussion Advance care planning discussed with:: patient and child Office Procedures GNS Level of Care Nursing/Assessment Patient Status: Established Patient Nursing Assessment/Reassesment: Medication Reconciliation, Update PMH in EMR and Vital Signs Coordination of Care: Complex Care and Chronic Disease 1-5, Education Complex Pt/Fam, Consent,records obtained, informed consent, Results/Orders obtained and Staff clarify orders Established Patient Charge Established Patient Point Assignment: 95 Established Patient Point Charge: Level 3 (80-115) MA Intake Visit Data Collection New Patient or Established: Established Patient (seen at [facility] within 3 years) Reason for Visit:: 8 WEEK RIGHT TKA Seen by Clinical Staff ONLY (RN/MA): No Principal Programmer Required: Yes PCP or OBGYN visit in last 3 months: Yes Hx Now: No Do You Feel Safe at Home: Yes Authorities Contacted: N/A Questionairres Past Medical History Past Medical History Have you ever been diagnosed with any of the following: Neurological Problems Cerebrovascular Accident (CVA): No Seizures: No Cardiology Problems Hypercholesterolemia: Yes Congestive Heart Failure: No Hypertension: Yes Respiratory Problems Chronic Obstructive Pulmonary Disease (COPD): No Smoking: No Smoking Exposure: No Stomache/Intestinal Problems Hepatitis: No Obesity: No Genital/Urinary Problems Renal Disease: No Musculoskeletal Problems Arthritis: Yes Endocrine Problems Diabetes Mellitus Type 1: No Diabetes Mellitus Type 2: Yes Blood Problems Anemia: Yes Other Problems Hospitalization: Yes (DM) Shingles: No Blood Transfusions: No Blood Transfusion Reaction: No Anesthesia Reactions: No Cancer: No Surgical History Total Knee Replacement: Yes Subjective Visit Visit for: follow up visit and knee Immunization / Flu Flu Vaccine in the Last 12 Months: No Flu Vaccine Exclusion Criteria: No Exclusion Criteria History of Present Illness Chief complaint: 8 WEEK RIGHT TKA F/U Patient is 16 weeks postop status post left total knee replacement. He is doing well. He is now 8 weeks s/p R TKA. Reports that he is doing well and has minimal pain Personal History Red flag PMH: none Pain Pain level (0-10): 2 Pain duration: ON AND OFF Pain location: anterior Pain quality: aching Pain timing: increases with activity Associated signs & symptoms: numbness Ambulatory data Ambulatory device: walker Walking distance (minutes): 1 Treatments Number of previous injections: 0 Improvement with previous injections: No Number of Physical Therapy sessions: 0 Improvement with PT: No Improvement with NSAIDS: no Review of Systems Review of Systems: All systems negative unless otherwise noted in HPI.
[2025-06-02 10:48] VITALS: BP 148/77; PULSE 74; RESP 19; TEMP 36.7; O2SAT 97; BMI 30.4
--- NOTE | 2025-06-02 10:53 | XR_ITS ---
EXAMINATION: Bilateral knees 2 views Right lateral knee left artery 2 views Bilateral axial knee single view TECHNIQUE: Bilateral AP knees standing single view, bilateral. A single view flexion Standing right lateral knee left lateral knee 2 views Bilateral axial knee single view Date and time: June 02, 2025, 1109 hours INDICATIONS: Bilateral knee pain right side 2 months ago left side 4 months ago FINDINGS: Moderate osteopenia. Bilateral total knee arthroplasties. Satisfactory alignment. No loosening of the prosthetic components. No fractures. No patellar dislocations. Moderate thinning of the cartilage posterior patellar surfaces IMPRESSION: Bilateral total knee arthroplasties with satisfactory alignment
== END 2025-06-02 10:58 | disposition home or self-care (01) ==
LOC: HODSRG 10:24
PROVIDERS: PCP Family Medicine; Referring Provider Family Medicine; Supervising Provider Orthopaedic Surgery Adult Reconstructive Orthopaedic Surgery; Visit Provider Orthopaedic Surgery Adult Reconstructive Orthopaedic Surgery
DX: Z47.1 Aftercare following joint replacement surgery (principal); Z96.651 Presence of right artificial knee joint; E11.9 Type 2 diabetes mellitus without complications; Z79.84 Long term (current) use of oral hypoglycemic drugs
CPT/HCPCS: 73564; 99213; G0463